=== PATIENT | male | born 1955 | race Caucasian/White ===

== ENCOUNTER → 2017-12-05 07:43 | Outpatient (CLI) | payer OTHER, SELFPAY ==
[2017-12-05 08:44] LABS: Add Manual Diff / Slide Review NO; Basophils Percent Auto 0.8 % (0-2); Eosinophils Percent Auto 6.1 % (2-4); Hematocrit 41.5 % (41-53); Hemoglobin 14.1 g/dL (13.5-17.5); Lymphocytes Percent Auto 26.4 % (25-40); Mean Corpuscular HGB Conc 33.9 % (30-36); Mean Corpuscular Hemoglobin 33.3 PG (26-34); Mean Corpuscular Volume 98.1 fL (80-100); Monocytes Percent Auto 5.8 % (3-14); Neutrophils Absolute Auto 3500 /uL (3000-5900); Neutrophils Percent Auto 60.9 % (50-75); Platelet Count 262 X10^3/uL (150-400); Red Blood Cell Count 4.23 X10^6/uL (4.5-5.9); Red Cell Distribution Width 13.5 % (11.6-14.8); White Blood Cell Count 5.8 X10^3/uL (4.5-11.0)
[2017-12-05 08:49] LABS: Alanine Aminotransferase 27 IU/L (21-72); Albumin 4.4 g/dL (3.5-5.0); Albumin Globulin Ratio 1.8 (1.0-2.8); Alkaline Phosphatase 45 U/L (38-126); Aspartate Aminotransferase 18 IU/L (17-59); BUN Creatinine Ratio 31.4 (6-22); Bilirubin Total 0.8 mg/dL (0.2-1.3); Blood Urea Nitrogen 22 mg/dL (9-20); Calcium 9.6 mg/dL (8.4-10.2); Carbon Dioxide 31 mmol/L (22-32); Chloride 100 mmol/L (98-107); Cholesterol 197 mg/dL (140-199); Estimated Glomerular Filt Rate > 60.0 mL/min (>60); Globulin 2.4 g/dL (1.7-4.1); Glucose 249 mg/dL (80-110); HDL Cholesterol 72 mg/dL (40-60); HEMOLYSIS < 15 (0-50); LDL Cholesterol Calculated 111 mg/dL (<100); Potassium 4.8 mmol/L (3.4-5.1); Sodium 140 mmol/L (137-145); Total Protein 6.8 g/dL (6.3-8.2); Triglycerides 68 mg/dL (35-150)
[2017-12-05 09:20] LABS: Prostate Specific Antigen Scrn 3.32 ng/mL (0.1-4.0); TSH w/ Reflex to FT4 2.41 uIU/mL (0.47-4.68)
[2017-12-05 09:36] LABS: Creatinine Urine Random 98.3 mg/dL
[2017-12-05 09:41] LABS: Microalbumi Creatinin Ratio Ur 12.2 ug/mg CR (<30); Microalbumin Urine Random 1.2 mg/dL (0-1.6)
== END ==
PROVIDERS: PCP Family Medicine; Visit Provider Family Medicine
DX: E10.9 Type 1 diabetes mellitus without complications (principal); N40.0 Benign prostatic hyperplasia without lower urinary tract symptoms; E78.00 Pure hypercholesterolemia, unspecified
CPT/HCPCS: 36415; 80053; 80061; 82043; 82570; 84443; 85025; G0103

== ENCOUNTER → 2018-12-12 07:22 | Outpatient (CLI) | payer OTHER, SELFPAY ==
[2018-12-12 08:11] LABS: Add Manual Diff / Slide Review NO; Basophils Absolute Auto 0 /uL (0-100); Basophils Percent Auto 0.9 % (0-2); Eosinophils Absolute Auto 300 /uL (0-450); Eosinophils Percent Auto 6.6 % (2-4); Hematocrit 41.5 % (41-53); Hemoglobin 14.1 g/dL (13.5-17.5); Lymphocytes Absolute Auto 1600 /uL (1100-4500); Lymphocytes Percent Auto 31.3 % (25-40); Mean Corpuscular Hemoglobin 33.3 PG (26-34); Monocytes Absolute Auto 400 /uL (0-900); Neutrophils Absolute Auto 2800 /uL (1500-7000); Neutrophils Percent Auto 54.2 % (50-75); Platelet Count 291 X10^3/uL (150-400); Red Blood Cell Count 4.23 X10^6/uL (4.5-5.9); Red Cell Distribution Width 13.8 % (11.6-14.8); White Blood Cell Count 5.3 X10^3/uL (4.5-11.0)
[2018-12-12 08:28] LABS: Alanine Aminotransferase 29 IU/L (21-72); Albumin 4.3 g/dL (3.5-5.0); Albumin Globulin Ratio 1.7 (1.0-2.8); Alkaline Phosphatase 46 U/L (38-126); Aspartate Aminotransferase 20 IU/L (17-59); BUN Creatinine Ratio 34.3 (6-22); Bilirubin Total 0.8 mg/dL (0.2-1.3); Blood Urea Nitrogen 24 mg/dL (9-20); Calcium 9.6 mg/dL (8.4-10.2); Carbon Dioxide 29 mmol/L (22-32); Chloride 100 mmol/L (98-107); Cholesterol 206 mg/dL (140-199); Estimated Glomerular Filt Rate > 60.0 mL/min (>60); Globulin 2.5 g/dL (1.7-4.1); Glucose 154 mg/dL (80-110); HDL Cholesterol 70 mg/dL (40-60); HEMOLYSIS < 15 (0-50); LDL Cholesterol Calculated 117 mg/dL (<100); Potassium 4.2 mmol/L (3.4-5.1); Sodium 138 mmol/L (137-145); Total Protein 6.8 g/dL (6.3-8.2); Triglycerides 96 mg/dL (35-150)
[2018-12-12 08:36] LABS: Hemoglobin A1C% w Est Avg Glu 7.9 % (4.0-6.0)
[2018-12-12 08:39] LABS: Creatinine Urine Random 104.9 mg/dL
[2018-12-12 08:43] LABS: Microalbumi Creatinin Ratio Ur 12.3 ug/mg CR (<30); Microalbumin Urine Random 1.3 mg/dL (0-1.6)
[2018-12-12 08:58] LABS: Prostate Specific Antigen Scrn 3.06 ng/mL (0.1-4.0)
[2018-12-12 08:59] LABS: TSH w/ Reflex to FT4 2.68 uIU/mL (0.47-4.68)
== END ==
PROVIDERS: PCP Family Medicine; Visit Provider Family Medicine
DX: E10.9 Type 1 diabetes mellitus without complications (principal); E78.00 Pure hypercholesterolemia, unspecified; Z12.5 Encounter for screening for malignant neoplasm of prostate
CPT/HCPCS: 36415; 80053; 80061; 82043; 82570; 83036; 84443; 85025; G0103

== ENCOUNTER → 2019-12-10 07:27 | Outpatient (CLI) | payer OTHER, SELFPAY ==
[2019-12-10 08:35] LABS: Add Manual Diff / Slide Review NO; Basophils Absolute Auto 0 /uL (0-100); Basophils Percent Auto 0.8 % (0-2); Eosinophils Absolute Auto 500 /uL (0-450); Eosinophils Percent Auto 8.4 % (2-4); Hematocrit 42.4 % (41-53); Hemoglobin 14.1 g/dL (13.5-17.5); Lymphocytes Absolute Auto 1700 /uL (1100-4500); Lymphocytes Percent Auto 31.7 % (25-40); Mean Corpuscular HGB Conc 33.2 % (30-36); Mean Corpuscular Hemoglobin 32.6 PG (26-34); Mean Corpuscular Volume 98.3 fL (80-100); Monocytes Absolute Auto 300 /uL (0-900); Monocytes Percent Auto 5.4 % (3-14); Neutrophils Absolute Auto 2900 /uL (1500-7000); Neutrophils Percent Auto 53.7 % (50-75); Platelet Count 253 X10^3/uL (150-400); Red Blood Cell Count 4.31 X10^6/uL (4.5-5.9); Red Cell Distribution Width 13.6 % (11.6-14.8); White Blood Cell Count 5.5 X10^3/uL (4.5-11.0)
[2019-12-10 08:52] LABS: HEMOLYSIS < 15 (0-50)
[2019-12-10 09:03] LABS: Alanine Aminotransferase 16 IU/L (<50); Albumin 4.2 g/dL (3.5-5.0); Albumin Globulin Ratio 1.8 (1.0-2.8); Alkaline Phosphatase 49 U/L (38-126); Aspartate Aminotransferase 18 IU/L (17-59); BUN Creatinine Ratio 31.3 (6-22); Bilirubin Total 0.7 mg/dL (0.2-1.3); Blood Urea Nitrogen 21 mg/dL (9-20); Calcium 9.6 mg/dL (8.4-10.2); Carbon Dioxide 29 mmol/L (22-32); Chloride 101 mmol/L (98-107); Cholesterol 205 mg/dL (140-199); Estimated Glomerular Filt Rate > 60.0 mL/min (>60); Globulin 2.4 g/dL (1.7-4.1); Glucose 254 mg/dL (80-110); HDL Cholesterol 74 mg/dL (40-60); LDL Cholesterol Calculated 114 mg/dL (<100); Potassium 4.8 mmol/L (3.4-5.1); Sodium 135 mmol/L (137-145); Total Protein 6.6 g/dL (6.3-8.2); Triglycerides 86 mg/dL (35-150)
[2019-12-10 09:33] LABS: TSH w/ Reflex to FT4 2.33 uIU/mL (0.47-4.68)
[2019-12-10 10:08] LABS: Creatinine Urine Random 91.9 mg/dL
[2019-12-10 10:15] LABS: Microalbumi Creatinin Ratio Ur 11.9 ug/mg CR (<30); Microalbumin Urine Random 1.1 mg/dL (0-1.6)
== END ==
PROVIDERS: PCP Family Medicine; Referring Provider Family Medicine; Visit Provider Family Medicine
DX: E10.9 Type 1 diabetes mellitus without complications (principal); E78.00 Pure hypercholesterolemia, unspecified; N40.0 Benign prostatic hyperplasia without lower urinary tract symptoms
CPT/HCPCS: 36415; 80053; 80061; 82043; 82570; 84153; 84443; 85025

== ENCOUNTER 2020-03-16 05:46 | Emergency (ER) | payer OTHER, SELFPAY ==
[2020-03-16] VITALS (28 sets, daily range): BP systolic 80–142; BP diastolic 51–74; PULSE 81–177; RESP 12–34; TEMP 37; O2SAT 97–100; BMI 25.0
--- NOTE | 2020-03-16 05:57 | DI.RAD.S_ITS ---
PROCEDURE: XR CHEST 1V INDICATIONS: chest pain TECHNIQUE: One view of the chest was acquired. COMPARISON: None. FINDINGS: Surgical changes and devices: None. Lungs and pleura: Lungs are clear. No pleural effusions or pneumothorax. Mediastinum: Mediastinal contours appear normal. Heart size is normal. Bones and chest wall: No suspicious bony lesions. Overlying soft tissues appear unremarkable. IMPRESSION: No acute cardiopulmonary disease process. Dictated by: Hien Hurd MD, PhD on 03/16/2020 at 7:45 Approved by: Hien Hurd MD, PhD on 03/16/2020 at 7:45
[2020-03-16 06:07] LABS: Add Manual Diff / Slide Review NO; Basophils Absolute Auto 100 /uL (0-100); Basophils Percent Auto 0.6 % (0-2); Eosinophils Absolute Auto 300 /uL (0-450); Eosinophils Percent Auto 2.8 % (2-4); Hemoglobin 15.9 g/dL (13.5-17.5); Lymphocytes Absolute Auto 3100 /uL (1100-4500); Lymphocytes Percent Auto 27.9 % (25-40); Mean Corpuscular Hemoglobin 32.8 PG (26-34); Mean Corpuscular Volume 99.4 fL (80-100); Monocytes Absolute Auto 700 /uL (0-900); Monocytes Percent Auto 5.8 % (3-14); Neutrophils Absolute Auto 7000 /uL (1500-7000); Neutrophils Percent Auto 62.9 % (50-75); Platelet Count 353 X10^3/uL (150-400); Red Blood Cell Count 4.83 X10^6/uL (4.5-5.9); Red Cell Distribution Width 13.8 % (11.6-14.8); White Blood Cell Count 11.2 X10^3/uL (4.5-11.0)
[2020-03-16 06:14] LABS: Alanine Aminotransferase 21 IU/L (<50); Albumin 4.5 g/dL (3.5-5.0); Albumin Globulin Ratio 1.5 (1.0-2.8); Alkaline Phosphatase 53 U/L (38-126); Aspartate Aminotransferase 26 IU/L (17-59); BUN Creatinine Ratio 31.6 (6-22); Bilirubin Total 0.9 mg/dL (0.2-1.3); Blood Urea Nitrogen 30 mg/dL (9-20); COVID19 -Nasal RAPID Negative (Negative); Calcium 9.7 mg/dL (8.4-10.2); Carbon Dioxide 27 mmol/L (22-32); Chloride 101 mmol/L (98-107); Creatine Kinase 102 U/L (55-170); Estimated Glomerular Filt Rate > 60.0 mL/min (>60); Glucose 313 mg/dL (80-110); Lipase 63 U/L (23-300); Sodium 135 mmol/L (137-145); Total Protein 7.5 g/dL (6.3-8.2)
[2020-03-16 06:16] LABS: INR 0.9 (0.9-1.3); Prothrombin Time 10.4 SECONDS (10.1-12.7)
[2020-03-16 06:18] LABS: HEMOLYSIS 66 (0-50); PTT Partial Thromboplastin Tim 33 SECONDS (26.4-36.2)
[2020-03-16 06:19] LABS: Potassium 4.1 mmol/L (3.4-5.1)
[2020-03-16] MEDS: SODIUM CHLORIDE 0.9% 1,000 ML 1000 ML IV (06:25)
[2020-03-16 06:26] LABS: Troponin I 0.046 ng/mL (0.01-0.034)
[2020-03-16 06:31] LABS: CKMB % Relative Index 1.3 % (1.5-5.0); Creatine Kinase MB 1.36 ng/mL (<2.37)
--- NOTE | 2020-03-16 06:36 | ED.SOB ---
HPI - SOB/Dyspnea General Chief Complaint: Arrhythmia/Palpitations Stated Complaint: SOB DIZZY X3 HOURS Time Seen by Provider: 03/16/20 05:59 Source: patient Mode of arrival: Ambulatory Limitations: no limitations History of Present Illness HPI Narrative: 64-year-old male nonsmoker with history of diabetes and a remote report of 1 prior episode of atrial fibrillation presents with a chief complaint of 3 hours of dizziness, shortness of breath and rapid heart rate. He states that he went to bed in his normal state of health and awoke at 1:00 a.m. feeling as stated. He denies any medication or diet change. He denies any recent travel. He denies any significant stresses, caffeine, nicotine or alcohol. He denies any chest pain. He denies any fever or chills. MD Complaint: shortness of breath Onset (ago): hour(s) Severity: moderate Consistency/Duration: constant Relieving factors: nothing Exacerbating factors: exertion Treatment prior to arrival: none Related Data Home oxygen amount: none Previous Rx's Medication Instructions Recorded insulin NPH isoph U-100 human 0 u SC TID #3 ml 12/12/16 [Humulin N NPH Insulin KwikPen] insulin glargine [Lantus Solostar 0 unit SQ HS #1 syr 12/12/16 U-100 Insulin] tamsulosin 0.4 mg capsule 0.8 mg PO QDAY #180 cap 11/24/19 apixaban [Eliquis] 5 mg PO BID 21 Days #42 tab 03/16/20 Allergies Allergy/AdvReac Type Severity Reaction Status Date / Time No Known Drug Allergies Allergy Verified 12/22/19 08:51 Review of Systems Constitutional Constitutional: Denies chills, Denies fatigue, Denies fever(s), Denies frequent falls, Denies lethargy and Denies weakness Eyes Eyes: Denies change in vision, Denies eye discharge, Denies irritation and Denies loss of vision ENT Ears, Nose, Mouth, and Throat: Denies change in voice, Denies dizziness, Denies neck pain, Denies sore throat and Denies throat swelling Cardiovascular Cardiovascular: Denies chest pain, Reports irregular heart rhythm, Reports lightheadedness, Reports palpitations, Denies dyspnea, Denies dyspnea on exertion and Denies orthopnea Respiratory Respiratory: Denies cough, Denies dyspnea, Denies dyspnea on exertion and Denies wheezing Gastrointestinal Gastrointestinal: Denies abdominal pain, Denies change in bowel habits, Denies diarrhea, Denies nausea and Denies vomiting Musculoskeletal Musculoskeletal: Denies neck pain and Denies numbness Integumentary/Breasts Skin/Breast: Denies pruritus, Denies erythema, Denies rash and Denies wounds Neurologic Neurologic: Denies behavioral changes, Denies confusion, Denies dizziness, Denies frequent falls, Denies loss of vision, Denies numbness and Denies weakness Psychiatric Psychiatric: Denies anxiety, Denies behavioral changes, Denies confusion, Denies depression, Denies homicidal ideation and Denies suicidal ideation Endocrine Endocrine: Denies fatigue, Denies flushing and Reports palpitations Hematologic/Lymphatic Hematologic/Lymphatic: Denies easy bruising Allergic/Immunologic Allergic/Immunologic: Denies urticaria, Denies throat swelling and Denies wheezing Patient History Medical History (Updated 03/16/20 @ 06:41 by Damián Dominique DO) Benign prostatic hyperplasia Diabetes mellitus type 1A (~2010) Kidney stones Social History marital status: Smoking Status: Never smoker alcohol intake: current (1-3 A WEEK ) substance use type: does not use Smoking Status: Never smoker Substance Use Type: does not use Exam Narrative Exam Narrative: GENERAL: [64] year old patient appears stated age. Well-nourished, well-developed patient, in mild distress. HEAD: Atraumatic. Normocephalic. EYES: Pupils equal round and reactive. Extraocular motions intact. No scleral icterus. No injection or drainage. ENT: Nose without bleeding, purulent drainage. Throat without erythema, tonsillar hypertrophy or exudate. Airway patent. NECK: Trachea midline. Non tender CARDIOVASCULAR: Rapid irregular rhythm without murmurs, gallops, or rubs. RESPIRATORY: Clear to auscultation. Breath sounds equal bilaterally. No wheezes, rales, or rhonchi. GASTROINTESTINAL: Abdomen soft, non-tender, nondistended. EXTREMITIES: No edema or joint tenderness. BACK: Nontender without deformity or crepitance. No flank tenderness. NEURO: AOx3. SKIN: No rash or erythema of visible areas Initial Vital Signs Initial Vital Signs: Vital Signs Temperature 98.6 F 03/16/20 05:57 Pulse Rate 164 H 03/16/20 05:57 Respiratory Rate 20 03/16/20 05:57 Blood Pressure 116/72 03/16/20 05:57 Pulse Oximetry 99 03/16/20 05:57 Procedures Cardioversion Consent Signed: Yes Indication: Rapid atrial fibrillation Stability: Stable Number of attempts (shocks): 1 Joules used: 150 Cardiac rhythm post-cardioversion: NSR Procedural Sedation Consent signed: Yes Time out performed: Yes Indication: cardioversion ASA Class: II Mallampati Airway Classification: Class II Preparation: monitor worker applied, pulse oximeter, capnometry used, supplemental O2 applied, suction/airway equipment at bedside and IV secured IV Propofol dose (mg): 80 Intraservice time/total sedation time (min): 10 ED Sedation Level: Moderate (Concious) Patient Tolerated Procedure: Well Complications: none Course Orders Ordered: Discontinued Medications Apixaban (Apixaban 5 Mg Tablet) 5 mg PO NOW ONE Stop: 03/16/20 06:58 Last Admin: 03/16/20 07:20 Dose: 5 mg Documented by: FLORENCIA Sodium Chloride (Normal Saline 0.9%) 1,000 mls @ 1,000 mls/hr IV BOLUS ONE Stop: 03/16/20 07:47 Last Infusion: 03/16/20 06:51 Dose: 0 mls/hr Documented by: Admin: 03/16/20 06:25 Dose: 1,000 mls/hr Documented by: AI Propofol (Propofol 200 Mg/20 Ml Vial) 100 mg IV NOW ONE Stop: 03/16/20 06:00 Last Admin: 03/16/20 06:46 Dose: 80 mg Documented by: AI Vital Signs Vital signs: Vital Signs - 8 hr 03/16/20 05:57 03/16/20 05:58 03/16/20 06:00 Temperature 98.6 F Pulse Rate 164 H 166 H 177 H Respiratory Rate 20 29 H 23 Blood Pressure 116/72 142/62 H Pulse Oximetry 99 100 100 MDM - SOB/Dyspnea Lab Data Result diagrams: 03/16/20 05:55 03/16/20 05:55 Labs: Lab Results 03/16/20 03/16/20 03/16/20 Range/Units 05:55 05:55 05:55 WBC 11.2 H (4.5-11.0) X10^3/uL RBC 4.83 (4.5-5.9) X10^6/uL Hgb 15.9 (13.5-17.5) g/dL Hct 48.0 (41-53) % MCV 99.4 (80-100) fL MCH 32.8 (26-34) PG MCHC 33.0 (30-36) % RDW 13.8 (11.6-14.8) % Plt Count 353 (150-400) X10^3/uL Neut % (Auto) 62.9 (50-75) % Lymph % (Auto) 27.9 (25-40) % [place] % (Auto) 5.8 (3-14) % Eos % (Auto) 2.8 (2-4) % Baso % (Auto) 0.6 (0-2) % Neut # (Auto) 7000 (7010-0857) /uL Lymph # (Auto) 3100 (9546-1345) /uL [place] # (Auto) 700 (0-900) /uL Eos # (Auto) 300 (0-450) /uL Baso # (Auto) 100 (0-100) /uL PT 10.4 (10.1-12.7) SECONDS INR 0.9 (0.9-1.3) APTT 33 (26.4-36.2) SECONDS Sodium (137-145) mmol/L Potassium (3.4-5.1) mmol/L Chloride (98-107) mmol/L Carbon Dioxide (22-32) mmol/L BUN (9-20) mg/dL Creatinine (0.66-1.25) mg/dL Estimated GFR (>60) mL/min BUN/Creatinine Ratio (6-22) Glucose (80-110) mg/dL Calcium (8.4-10.2) mg/dL Total Bilirubin (0.2-1.3) mg/dL AST (17-59) IU/L ALT (<50) IU/L Alkaline Phosphatase (38-126) U/L Total Creatine Kinase (55-170) U/L CK-MB (CK-2) (<2.37) ng/mL CK-MB (CK-2) Rel Index (1.5-5.0) % Troponin I (0.01-0.034) ng/mL Total Protein (6.3-8.2) g/dL Albumin (3.5-5.0) g/dL Globulin (1.7-4.1) g/dL Albumin/Globulin Ratio (1.0-2.8) Lipase (23-300) U/L COVID-19 PCR Negative (Negative) 03/16/20 Range/Units 05:55 WBC (4.5-11.0) X10^3/uL RBC (4.5-5.9) X10^6/uL Hgb (13.5-17.5) g/dL Hct (41-53) % MCV (80-100) fL MCH (26-34) PG MCHC (30-36) % RDW (11.6-14.8) % Plt Count (150-400) X10^3/uL Neut % (Auto) (50-75) % Lymph % (Auto) (25-40) % [place] % (Auto) (3-14) % Eos % (Auto) (2-4) % Baso % (Auto) (0-2) % Neut # (Auto) (9205-4192) /uL Lymph # (Auto) (6871-3111) /uL [place] # (Auto) (0-900) /uL Eos # (Auto) (0-450) /uL Baso # (Auto) (0-100) /uL PT (10.1-12.7) SECONDS INR (0.9-1.3) APTT (26.4-36.2) SECONDS Sodium 135 L (137-145) mmol/L Potassium 4.1 (3.4-5.1) mmol/L Chloride 101 (98-107) mmol/L Carbon Dioxide 27 (22-32) mmol/L BUN 30 H (9-20) mg/dL Creatinine 0.95 (0.66-1.25) mg/dL Estimated GFR > 60.0 (>60) mL/min BUN/Creatinine Ratio 31.6 H (6-22) Glucose 313 H (80-110) mg/dL Calcium 9.7 (8.4-10.2) mg/dL Total Bilirubin 0.9 (0.2-1.3) mg/dL AST 26 (17-59) IU/L ALT 21 (<50) IU/L Alkaline Phosphatase 53 (38-126) U/L Total Creatine Kinase 102 (55-170) U/L CK-MB (CK-2) 1.36 (<2.37) ng/mL CK-MB (CK-2) Rel Index 1.3 L (1.5-5.0) % Troponin I 0.046 H (0.01-0.034) ng/mL Total Protein 7.5 (6.3-8.2) g/dL Albumin 4.5 (3.5-5.0) g/dL Globulin 3.0 (1.7-4.1) g/dL Albumin/Globulin Ratio 1.5 (1.0-2.8) Lipase 63 (23-300) U/L COVID-19 PCR (Negative) ECG Data Attestation: I personally reviewed and interpreted this ECG as follows: Interpretation: Rapid atrial fibrillation, rate 167, mild septal ST depressions Discharge Plan Departure Patient Disposition: Home Clinical Impression: Atrial fibrillation Qualifiers: Atrial fibrillation type: paroxysmal Qualified Code(s): I48.0 - Paroxysmal atrial fibrillation Instructions: DI for Atrial Fibrillation Activity Restrictions/Additional Instructions: *You have been diagnosed with [rapid atrial fibrillation, resolved with procedural sedation and cardioversion] *What to do: *Take medications as directed: You will need to be on an anticoagulant for the next 3 weeks, a prescription has been sent to [facility] at your request *Follow up with your primary care provider in 2-3 days, call for an appointment. Let them know you were seen in the Emergency Department and that we ask that you be seen in follow up *Return to ER if you should have any new, worsening or concerning symptoms Prescriptions: New Eliquis 5 mg tablet 5 mg PO BID 21 Days Qty: 42 RF: 0 No Action insulin NPH isoph U-100 human [Humulin N NPH Insulin KwikPen] 100 UNIT/1 ML insulin pen 0 u SC TID Qty: 3 RF: 3 insulin glargine [Lantus Solostar U-100 Insulin] 100 UNIT/1 ML insulin pen 0 unit SQ HS Qty: 1 RF: 12 tamsulosin [Flomax] 0.4 mg capsule 0.8 mg PO QDAY Qty: 180 RF: 1 Referrals: Ralph Haas MD [Primary Care Provider] -
[2020-03-16] MEDS: propofoL 200 MG/20 ML VIAL 100 MG IV (06:46)
[2020-03-16] MEDS: APIXABAN 5 MG TABLET PO (07:20)
== END 2020-03-16 08:06 | disposition home or self-care (01) ==
PROVIDERS: Emergency Provider Emergency Medicine; PCP Family Medicine
DX: I48.0 Paroxysmal atrial fibrillation (principal); Z79.01 Long term (current) use of anticoagulants; E10.8 Type 1 diabetes mellitus with unspecified complications; R00.2 Palpitations; Z79.4 Long term (current) use of insulin; Z20.828 Contact with and (suspected) exposure to other viral communicable diseases
CPT/HCPCS: 36415; 71045; 80053; 82550; 82553; 83690; 84484; 85025; 85610; 85730; 87635; 92960; 93005; 99152; 99284; 99285; 99291; J2704

== ENCOUNTER → 2020-04-15 09:18 | Outpatient (CLI) | payer OTHER, SELFPAY ==
[2020-04-15 09:58] LABS: Hemoglobin A1C% w Est Avg Glu 8.2 % (4.0-6.0)
[2020-04-15 09:59] LABS: Alanine Aminotransferase 20 IU/L (<50); Albumin 4.4 g/dL (3.5-5.0); Albumin Globulin Ratio 1.8 (1.0-2.8); Alkaline Phosphatase 49 U/L (38-126); Aspartate Aminotransferase 19 IU/L (17-59); BUN Creatinine Ratio 31.3 (6-22); Bilirubin Total 0.5 mg/dL (0.2-1.3); Blood Urea Nitrogen 20 mg/dL (9-20); Calcium 9.6 mg/dL (8.4-10.2); Carbon Dioxide 33 mmol/L (22-32); Chloride 100 mmol/L (98-107); Cholesterol 215 mg/dL (140-199); Estimated Glomerular Filt Rate > 60.0 mL/min (>60); Globulin 2.4 g/dL (1.7-4.1); Glucose 225 mg/dL (80-110); HDL Cholesterol 70 mg/dL (40-60); HEMOLYSIS < 15 (0-50); LDL Cholesterol Calculated 130 mg/dL (<100); Potassium 4.2 mmol/L (3.4-5.1); Sodium 137 mmol/L (137-145); Total Protein 6.8 g/dL (6.3-8.2); Triglycerides 75 mg/dL (35-150)
[2020-04-15 10:11] LABS: Add Manual Diff / Slide Review NO; Basophils Absolute Auto 0 /uL (0-100); Basophils Percent Auto 0.6 % (0-2); Eosinophils Absolute Auto 200 /uL (0-450); Eosinophils Percent Auto 3.3 % (2-4); Hemoglobin 13.7 g/dL (13.5-17.5); Lymphocytes Absolute Auto 1500 /uL (1100-4500); Lymphocytes Percent Auto 29.6 % (25-40); Mean Corpuscular HGB Conc 33.4 % (30-36); Mean Corpuscular Hemoglobin 32.6 PG (26-34); Mean Corpuscular Volume 97.8 fL (80-100); Monocytes Absolute Auto 200 /uL (0-900); Monocytes Percent Auto 4.8 % (3-14); Neutrophils Absolute Auto 3100 /uL (1500-7000); Neutrophils Percent Auto 61.7 % (50-75); Platelet Count 278 X10^3/uL (150-400); Red Blood Cell Count 4.19 X10^6/uL (4.5-5.9); Red Cell Distribution Width 13.5 % (11.6-14.8); White Blood Cell Count 5.1 X10^3/uL (4.5-11.0)
[2020-04-15 10:48] LABS: TSH w/ Reflex to FT4 2.07 uIU/mL (0.47-4.68)
[2020-04-15 11:09] LABS: Creatinine Urine Random 77.5 mg/dL
[2020-04-15 11:14] LABS: Microalbumi Creatinin Ratio Ur 32.2 ug/mg CR (<30); Microalbumin Urine Random 2.5 mg/dL (0-1.6)
== END ==
PROVIDERS: PCP Family Medicine; Referring Provider Family Medicine; Visit Provider Family Medicine
DX: I48.0 Paroxysmal atrial fibrillation (principal); E10.9 Type 1 diabetes mellitus without complications
CPT/HCPCS: 36415; 80053; 80061; 82043; 82570; 83036; 84443; 85025

== ENCOUNTER → 2020-04-26 07:57 | Outpatient (CLI) | payer OTHER, SELFPAY ==
--- NOTE | 2020-04-26 07:58 | DI.ECHO.S_ITS ---
[facility] +---------+ [facility] +---------+ : : [address] : : : : [id number] : : : : Phone: [phone] Echocardiogram Report + + :Name: DUSTIN MAJANO Study Date: 04/26/2020 Height: 66 in : :[facility] ReadingLocation: Weight: 155 lb : : Gender: Male BSA: 1.8 m2 : :: 1955 Age: 65 yrs BP: 153/87 mmHg: :Reason For Study: ATRIAL FIBRILLATION : :Ordering Physician: TG, : :ELIANE Performed By: Lissette Guillory : :Referring: ELIANE MAS : + + Interpretation Summary The left ventricle is normal in size and wall thickness. The ejection fraction is estimated to be 55-60%. The right ventricle is normal in size and function. There is mild mitral regurgitation. There is mild aortic regurgitation. There is mild tricuspid regurgitation. The right ventricular systolic pressure is estimated to be at least 26 mmHg based on an estimated right atrial pressure of 3 mm Hg. The ascending aorta is mildly enlarged. Procedure: A two-dimensional transthoracic echocardiogram with color flow and Doppler was performed. The study quality was technically adequate. There is no prior echocardiogram noted for this patient. The patient was in sinus rhythm with heart rates between 62-86 bpm during the exam. Left Ventricle: The left ventricle is normal in size and wall thickness. There is no thrombus. A false chord is noted (normal variant). The ejection fraction is estimated to be 55-60%. There are no focal wall motion abnormalities. Diastolic parameters suggest a relaxation abnormality of the left ventricle, consistent with probable normal filling pressures. Right Ventricle: The right ventricle is normal in size and function. Atria: The left atrial size is normal. Right atrial size is normal. There is no Doppler evidence for an interatrial shunt. Mitral Valve: The mitral valve is normal in structure and function. There is mild mitral regurgitation. Aortic Valve: The aortic valve opens well. The aortic valve is trileaflet. There is mild aortic valve sclerosis. There is no aortic valve stenosis. There is mild aortic regurgitation. Tricuspid Valve: The tricuspid valve is normal. There is mild tricuspid regurgitation. The right ventricular systolic pressure is estimated to be at least 26 mmHg based on an estimated right atrial pressure of 3 mm Hg. Pulmonic Valve: The pulmonic valve leaflets are thin and pliable; valve motion is normal. There is no pulmonic valvular regurgitation. Great Vessels: The aortic root is normal size. The ascending aorta is mildly enlarged. The IVC is of normal diameter and collapses greater than 50% with a sniff. This suggests a low right atrial pressure of 3 mm Hg. Pericardium/ Pleura There is no pericardial effusion. There is no pleural effusion. MMode/2D Measurements & Calculations LVIDd: 5.1 cm LVOT diam: 2.1 cm LVIDs: 3.2 cm Ao root diam: 3.8 cm FS: 36.6 % asc Aorta Diam: 3.7 cm EPSS: 0.56 cm Ao Arch Diam (Prox Trans): 3.0 cm IVSd: 0.94 cm LVPWd: 0.74 cm LV hernandez. diameter/BSA (cm/m^2): 2.9 LV sys. diameter/BSA (cm/m^2): 1.8 LA A2 area: 18.9 cm2 RA long axis: 4.4 cm LA A4 area: 14.3 cm2 RA area: 14.4 cm2 LA length (vol): 4.9 cm RA vol: 40.4 ml LA vol: 47.3 ml RA : 22.5 ml/m2 LA vol index: 26.4 ml/m2 IVC diam: 1.4 cm RVD1 (basal): 3.3 cm TAPSE: 2.2 cm Doppler Measurements & Calculations Ao V2 max: 142.9 cm/sec LVOT Max Bertin: 131.3 cm/sec Ao V2 mean: 96.7 cm/sec LV V1 max P.9 mmHg Ao max P.2 mmHg LV V1 VTI: 26.2 cm Ao mean P.2 mmHg MAXINE(I,D): 3.4 cm2 Ao V2 VTI: 27.6 cm MAXINE(V,D): 3.2 cm2 sev ratio: 0.95 MAXINE indexed to BSA (cm^2/m^2): 1.9 MV E max bertin: 61.5 cm/sec TR max bertin: 238.1 cm/sec MV A max bertin: 83.1 cm/sec TR max P.7 mmHg MV E/A: 0.74 PA V2 max: 87.6 cm/sec Med Peak E' Bertin: 9.8 cm/sec PA V2 mean: 63.1 cm/sec E/E' med: 6.3 PA mean P.8 mmHg Lat Peak E' Bertin: 12.1 cm/sec PA pr(Accel): 31.0 mmHg E/E' lat: 5.1 E/e' average: 5.7 MV dec time: 0.24 sec SV(OT): 92.5 ml Reading Physician:04:14 PM
== END ==
PROVIDERS: PCP Family Medicine; Referring Provider Family Medicine; Visit Provider Family Medicine
DX: I08.3 Combined rheumatic disorders of mitral, aortic and tricuspid valves (principal); I48.0 Paroxysmal atrial fibrillation; I77.89 Other specified disorders of arteries and arterioles
CPT/HCPCS: 93306

== ENCOUNTER → 2020-05-25 08:41 | Outpatient (CLI) | payer OTHER, SELFPAY ==
[2020-05-25 09:08] LABS: COVID19 -Nasal RAPID POSITIVE (Negative)
== END ==
PROVIDERS: PCP Family Medicine; Visit Provider Nurse Practitioner Family
DX: U07.1 COVID-19 (principal)
CPT/HCPCS: 87635

== ENCOUNTER → 2020-07-02 15:21 | Outpatient (CLI) | payer OTHER, SELFPAY ==
[2020-07-02] MEDS: COVID-19 VACC, Ad26(JANSSEN)/PF 0.5 ML IM (15:26)
== END ==
PROVIDERS: PCP Family Medicine; Visit Provider Internal Medicine
DX: Z23 Encounter for immunization (principal)
CPT/HCPCS: 0031A; 91303

== ENCOUNTER → 2020-09-28 12:19 | Outpatient (CLI) | payer OTHER, SELFPAY ==
[2020-09-28 13:10] LABS: Add Manual Diff / Slide Review NO; Basophils Absolute Auto 0 /uL (0-100); Basophils Percent Auto 0.5 % (0-2); Eosinophils Absolute Auto 100 /uL (0-450); Hematocrit 39.8 % (41-53); Hemoglobin 13.2 g/dL (13.5-17.5); Lymphocytes Absolute Auto 1700 /uL (1100-4500); Mean Corpuscular HGB Conc 33.1 % (30-36); Mean Corpuscular Hemoglobin 32.9 PG (26-34); Mean Corpuscular Volume 99.3 fL (80-100); Monocytes Absolute Auto 400 /uL (0-900); Neutrophils Absolute Auto 3800 /uL (1500-7000); Neutrophils Percent Auto 63.5 % (50-75); Platelet Count 278 X10^3/uL (150-400); Red Blood Cell Count 4.01 X10^6/uL (4.5-5.9); Red Cell Distribution Width 13.9 % (11.6-14.8); White Blood Cell Count 6.1 X10^3/uL (4.5-11.0)
[2020-09-28 13:22] LABS: Hemoglobin A1C% w Est Avg Glu 7.8 % (4.0-6.0)
[2020-09-28 13:25] LABS: Alanine Aminotransferase 22 IU/L (<50); Albumin 4.2 g/dL (3.5-5.0); Albumin Globulin Ratio 1.6 (1.0-2.8); Alkaline Phosphatase 46 U/L (38-126); Aspartate Aminotransferase 26 IU/L (17-59); BUN Creatinine Ratio 33.3 (6-22); Bilirubin Total 0.4 mg/dL (0.2-1.3); Blood Urea Nitrogen 23 mg/dL (9-20); Calcium 9.6 mg/dL (8.4-10.2); Carbon Dioxide 29 mmol/L (22-32); Chloride 103 mmol/L (98-107); Estimated Glomerular Filt Rate > 60.0 mL/min (>60); Globulin 2.6 g/dL (1.7-4.1); Glucose 150 mg/dL (80-110); HEMOLYSIS < 15 (0-50); Potassium 4.4 mmol/L (3.4-5.1); Sodium 137 mmol/L (137-145); Total Protein 6.8 g/dL (6.3-8.2)
== END ==
PROVIDERS: PCP Family Medicine; Referring Provider Family Medicine; Visit Provider Family Medicine
DX: E10.9 Type 1 diabetes mellitus without complications (principal)
CPT/HCPCS: 36415; 80053; 83036; 85025

== ENCOUNTER → 2021-01-04 17:40 | Outpatient (CLI) | payer OTHER, SELFPAY | PROVIDERS: PCP Family Medicine; Referring Provider Nurse Practitioner Family; Visit Provider Nurse Practitioner Family | DX: R31.9 Hematuria, unspecified (principal) | CPT/HCPCS: 87086 ==

== ENCOUNTER 2021-01-06 14:06 | Emergency (ER) | payer OTHER, SELFPAY ==
[2021-01-06] VITALS (10 sets, daily range): BP systolic 148–187; BP diastolic 66–88; PULSE 63–74; RESP 20; TEMP 36.7; O2SAT 95–100; BMI 24.2
--- NOTE | 2021-01-06 14:37 | ED.GENADULT ---
HPI - General Adult General Chief complaint: Urogenital-Male Stated complaint: Can't Urinate, Thinks Possible Kidney Stone Time Seen by Provider: 01/06/21 14:19 Source: patient Mode of arrival: Ambulatory Limitations: no limitations History of Present Illness HPI narrative: 65-year-old gentleman with well-controlled type 1 diabetes, BPH on 0.8 mg of tamsulosin and history of kidney stones presents with left flank pain and acute urinary retention. He describes no fevers, cough, chills. Abdominal pain related to his urinary retention but no constipation or diarrhea. Blood sugars have been doing well. No cough, chest pain or palpitations. Related Data Previous Rx's Medication Instructions Recorded insulin glargine 100 unit/mL (3 16 unit SUBCUT HS #15 ml 05/31/20 mL) subcutaneous pen (Lantus Solostar U-100 Insulin) insulin lispro 100 unit/mL 7 unit SUBCUT TID #30 ml 06/09/20 subcutaneous pen (Humalog KwikPen (U-100) Insulin) BD Anay Ultra Fine Pen [place] 4mm #200 ea 10/07/20 32G tamsulosin 0.4 mg capsule (Flomax) 0.8 mg PO QDAY #180 cap 11/30/20 Allergies Allergy/AdvReac Type Severity Reaction Status Date / Time No Known Drug Allergies Allergy Verified 09/30/20 16:31 Review of Systems Review of Systems Narrative: Remainder of complete review of systems is otherwise unremarkable except for that included in the HPI. Patient History Medical History Benign prostatic hyperplasia COVID-19 Diabetes mellitus type 1A (~2010) Kidney stones Viral illness Social History marital status: Smoking Status: Never smoker alcohol intake: current (1-3 A WEEK ) substance use type: does not use Smoking Status: Never smoker alcohol intake frequency: a few times a week Alcohol type: beer Substance Use Type: does not use Exam Narrative Exam Narrative: General: Healthy appearing, in no acute distress. Able to give a complete and coherent history. Well-nourished well-developed HEENT: Moist mucous membranes, normal sclera with reactive pupils, Respiratory: Lungs are clear to auscultation, no wheezing no rales no rhonchi. Full and symmetrical air movement Cardiac: Regular rate and rhythm no murmurs no bruits Abdomen: Soft, nontender, good bowel tones, left flank pain Skin: Warm and dry, no rashes Neurologic: Grossly neurologically intact with no obvious asymmetries or abnormalities Extremities: No trauma, well perfused Psych: Cooperative, appropriate insight and affect Stringer catheters placed and 1 L of urine returns Initial Vital Signs Initial Vital Signs: Vital Signs Pulse Rate 73 01/06/21 14:10 Pulse Oximetry 99 01/06/21 14:10 Course Orders Ordered: ED Orders 01/06/21 14:40 Urinalysis and Microscopic Stat 01/06/21 15:00 CT kidney ureter bladder (KUB) Stat 01/06/21 15:09 Complete Blood Count AUTO DIFF Stat Comprehensive Metabolic Panel Stat Discontinued Medications Sodium Chloride (Normal Saline 0.9%) 1,000 mls @ 1,000 mls/hr IV BOLUS ONE Stop: 01/06/21 15:58 Last Infusion: 01/06/21 16:50 Dose: 0 mls/hr Documented by: MARY JO Admin: 01/06/21 15:43 Dose: 1,000 mls/hr Documented by: MARY JO Vital Signs Vital signs: Vital Signs - 8 hr 01/06/21 14:10 01/06/21 14:11 01/06/21 14:13 Temperature 98.1 F Pulse Rate 73 70 68 Respiratory Rate 20 Blood Pressure 187/88 H 187/88 H Pulse Oximetry 99 99 99 01/06/21 14:30 01/06/21 15:00 01/06/21 15:30 Temperature Pulse Rate 74 67 67 Respiratory Rate Blood Pressure 149/66 H 163/71 H Pulse Oximetry 100 97 95 01/06/21 16:00 Temperature Pulse Rate 63 Respiratory Rate Blood Pressure Pulse Oximetry 95 Medical Decision Making Lab Data Result diagrams: 01/06/21 15:09 01/06/21 15:09 Labs: Lab Results 01/06/21 01/06/21 01/06/21 Range/Units 14:40 14:50 15:09 WBC 6.9 (4.5-11.0) X10^3/uL RBC 4.10 L (4.5-5.9) X10^6/uL Hgb 13.5 (13.5-17.5) g/dL Hct 41.1 (41-53) % MCV 100.1 H (80-100) fL MCH 33.0 (26-34) PG MCHC 33.0 (30-36) % RDW 13.5 (11.6-14.8) % Plt Count 291 (150-400) X10^3/uL Neut % (Auto) 69.8 (50-75) % Lymph % (Auto) 18.8 L (25-40) % [place] % (Auto) 7.4 (3-14) % Eos % (Auto) 3.5 (2-4) % Baso % (Auto) 0.5 (0-2) % Neut # (Auto) 4800 (6757-3491) /uL Lymph # (Auto) 1300 (8610-5102) /uL [place] # (Auto) 500 (0-900) /uL Eos # (Auto) 200 (0-450) /uL Baso # (Auto) 0 (0-100) /uL Sodium (137-145) mmol/L Potassium (3.4-5.1) mmol/L Chloride (98-107) mmol/L Carbon Dioxide (22-32) mmol/L BUN (9-20) mg/dL Creatinine (0.66-1.25) mg/dL Estimated GFR (>60) mL/min BUN/Creatinine Ratio (6-22) Glucose (80-110) mg/dL Calcium (8.4-10.2) mg/dL Total Bilirubin (0.2-1.3) mg/dL AST (17-59) IU/L ALT (<50) IU/L Alkaline Phosphatase (38-126) U/L Total Protein (6.3-8.2) g/dL Albumin (3.5-5.0) g/dL Globulin (1.7-4.1) g/dL Albumin/Globulin Ratio (1.0-2.8) Urine Color Yellow Urine Appearance Cloudy Urine pH 6.5 (4.5-8.0) Ur Specific [place] 1.015 (1.000-1.035) Urine Protein 1+ H (Negative) Urine Glucose (UA) Negative (Negative) g/dL Urine Ketones Trace H (NEGATIVE) Urine Occult Blood 3+ H (Negative) Urine Nitrate Negative (Negative) Urine Bilirubin Negative (NEGATIVE) Urine Urobilinogen 0.2 (0.2) E.U./dL Ur Leukocyte Esterase Negative (NEGATIVE) Urine RBC >100/hpf H Cancelled (0-5/HPF) Urine WBC 1-5/hpf Cancelled (0-5/HPF) Ur Squamous Epith Cells 0-1 /hpf Cancelled (0-5/HPF) Ur Transition Epith Cell Cancelled Ur Renal Epithelial Cell Cancelled Calcium Oxalate Crystal Cancelled Uric Acid Crystals Cancelled Triple Phos Crystals Cancelled Other Crystals Cancelled Amorphous Sediment Cancelled Urine Bacteria None seen Cancelled (None) Hyaline Casts Cancelled Granular Casts Cancelled RBC Casts Cancelled WBC Casts Cancelled Other Casts Cancelled Urine Mucus Cancelled Urine Trichomonas Cancelled Urine Yeast Cancelled Urine Sperm Cancelled Ur Culture Indicated? Cult not indicated Cancelled Micro UA Comment Cancelled 01/06/21 Range/Units 15:09 WBC (4.5-11.0) X10^3/uL RBC (4.5-5.9) X10^6/uL Hgb (13.5-17.5) g/dL Hct (41-53) % MCV (80-100) fL MCH (26-34) PG MCHC (30-36) % RDW (11.6-14.8) % Plt Count (150-400) X10^3/uL Neut % (Auto) (50-75) % Lymph % (Auto) (25-40) % [place] % (Auto) (3-14) % Eos % (Auto) (2-4) % Baso % (Auto) (0-2) % Neut # (Auto) (5534-8851) /uL Lymph # (Auto) (9341-3383) /uL [place] # (Auto) (0-900) /uL Eos # (Auto) (0-450) /uL Baso # (Auto) (0-100) /uL Sodium 137 (137-145) mmol/L Potassium 4.0 (3.4-5.1) mmol/L Chloride 100 (98-107) mmol/L Carbon Dioxide 30 (22-32) mmol/L BUN 22 H (9-20) mg/dL Creatinine 0.64 L (0.66-1.25) mg/dL Estimated GFR > 60.0 (>60) mL/min BUN/Creatinine Ratio 34.4 H (6-22) Glucose 157 H (80-110) mg/dL Calcium 9.9 (8.4-10.2) mg/dL Total Bilirubin 0.3 (0.2-1.3) mg/dL AST 21 (17-59) IU/L ALT 17 (<50) IU/L Alkaline Phosphatase 67 (38-126) U/L Total Protein 7.1 (6.3-8.2) g/dL Albumin 4.4 (3.5-5.0) g/dL Globulin 2.7 (1.7-4.1) g/dL Albumin/Globulin Ratio 1.6 (1.0-2.8) Urine Color Urine Appearance Urine pH (4.5-8.0) Ur Specific [place] (1.000-1.035) Urine Protein (Negative) Urine Glucose (UA) (Negative) g/dL Urine Ketones (NEGATIVE) Urine Occult Blood (Negative) Urine Nitrate (Negative) Urine Bilirubin (NEGATIVE) Urine Urobilinogen (0.2) E.U./dL Ur Leukocyte Esterase (NEGATIVE) Urine RBC (0-5/HPF) Urine WBC (0-5/HPF) Ur Squamous Epith Cells (0-5/HPF) Ur Transition Epith Cell Ur Renal Epithelial Cell Calcium Oxalate Crystal Uric Acid Crystals Triple Phos Crystals Other Crystals Amorphous Sediment Urine Bacteria (None) Hyaline Casts Granular Casts RBC Casts WBC Casts Other Casts Urine Mucus Urine Trichomonas Urine Yeast Urine Sperm Ur Culture Indicated? Micro UA Comment MDM Narrative Medical decision making narrative: 65-year-old type 1 diabetic with left kidney stone at the left UVJ. Pain is controlled this point. Acute urinary retention likely related to the pain and swelling secondary to the kidney stone. Stringer catheters placed with a L of fluid returned. Slightly bloody and as the bladder is drained there does appear to be some spasm in increased blood and after a L of fluid is out the urine again begins to clear nicely. On CT scan incidental bladder wall thickness is appreciated that will need further workup. These findings are reviewed with him. Last night follow-up with Dr. Haas on Sunday for removal of the catheter. He is given a leg bag with instructions. Will need follow-up with Dr. Fisher regarding the kidney stone if it does not come out, the BPH which is becoming more symptomatic and for follow-up of the incidental bladder wall thickness as well. Discharge Plan Departure Patient Disposition: Home Clinical Impression: Ureterolithiasis, Acute urinary retention, Bladder wall thickening Instructions: DI for Kidney Stones, DI for Urinary Retention in Men Activity Restrictions/Additional Instructions: Thank you for coming in today You do have a kidney stone on the left side that looks like it is almost ready to drop into your bladder. Please continue the tamsulosin twice a day. This should pass relatively easily. Regarding your acute urinary retention. I suspect that with the size of your prostate than the pain and swelling related to the kidney stone there was enough issue that you were simply no longer able to void. With the catheter placement, there was a L of fluid that came out. When there has been that much distension to the bladder it takes a couple of days to shrink back down to normal size and be functional again. We have left the Stringer catheter in place. Please call Dr. Juarez office and see if he can healthy removed the catheter on Sunday and see how you are able to void. You need to follow-up with Dr. Fisher our urologist. If you do need help getting that stone out he will be the person for you. On your CT scan there was a mention of diffuse bladder wall thickening. That may be simply because of the years of a enlarging prostate but you will need an answer regarding this. If your prostate does need to have any type of surgical intervention, again, Dr. Fisher is the appropriate physician. If you have catheter problems, develop fevers have new or changing symptoms, please feel free to return to the ER Prescriptions: No Action Lantus Solostar U-100 Insulin 100 unit/mL (3 mL) insulin pen 16 unit SUBCUT HS Qty: 15 RF: 4 insulin lispro [Humalog KwikPen Insulin] 100 unit/mL insulin pen 7 unit SUBCUT TID Qty: 30 RF: 3 (DME) BD Anay Ultra Fine Pen [place] 4mm 32G See Rx Instructions .Route .MEDSUPPLY Qty: 200 RF: 3 tamsulosin [Flomax] 0.4 mg capsule 0.8 mg PO QDAY Qty: 180 RF: 1 Referrals: Ralph Haas MD [Primary Care Provider] - Ronnie Fisher MD [Physician] -
--- NOTE | 2021-01-06 15:00 | DI.CT.S_ITS ---
PROCEDURE: CT KIDNEY URETER BLADDER (KUB) INDICATIONS: 65-year-old male with left flank pain, hematuria, history of renal calculi TECHNIQUE: Axial sections were acquired from the lung bases to the pubic symphysis. Coronal and sagittal reformats were performed. For radiation dose reduction, the following was used: automated exposure control, adjustment of mA and/or kV according to patient size. COMPARISON: None. FINDINGS: Lower thorax: The lung bases are clear. Heart size normal. No hiatal hernia. Liver: Normal in size and attenuation. No contour deformity present. Biliary system: No calcified cholelithiasis or pericholecystic inflammation. No intra or extrahepatic bile duct dilatation. Pancreas: Unremarkable without mass or inflammation evident. Spleen: Normal in size and density. Adrenals: Normal morphology and density. Reproductive system: Unremarkable as visualized. Urinary system: Moderate left hydronephrosis and hydroureter related to 7 x 4 mm calculus at the left ureterovesical junction. Bilateral nonobstructing renal calculi present measuring up to 5 mm on the right. No right hydronephrosis. Stringer catheter in the urinary bladder. Additionally, there is generalized wall thickening in the bladder measuring up to 1.5 cm Gastrointestinal system: The bowel is unremarkable without evidence of bowel obstruction or inflammation. The stomach appears unremarkable. Appendix: Normal appendix identified. No evidence of appendicitis. Peritoneal spaces: No mesenteric or retroperitoneal adenopathy. No free air. No free fluid. Vasculature: Aortic atherosclerotic vascular calcification noted without evidence of aneurysm. Musculoskeletal: Normal bone mineralization. No acute fractures. Left inguinal hernia contains fat without bowel involvement. IMPRESSION: 1. Moderate left hydronephrosis and hydroureter are associated with 7 x 4 mm calculus at the left ureterovesical junction. 2. Additional bilateral nonobstructing renal calculi. 3. Diffuse bladder wall thickening. Differential would include superimposed cystitis and neoplasm. Consider follow-up ultrasound bladder. Approved by: Hasmukh Chandra M.D. on 01/06/2021 at 14:41
[2021-01-06 15:04] LABS: Bilirubin Urine UA NEGATIVE (NEGATIVE); Color Urine UA YELLOW; Glucose Urine UA NEGATIVE (Negative); Ketones Urine UA TRACE (NEGATIVE); Leukocyte Esterase Urine UA NEGATIVE (NEGATIVE); Nitrite Urine UA NEGATIVE (Negative); Occult Blood Urine UA 3+ (Negative); Protein Urine UA 1+ (Negative); Specific Gravity Urine UA 1.015 (1.000-1.035); Urobilinogen Urine UA 0.2 E.U./dL (0.2); pH Urine UA 6.5 (4.5-8.0)
[2021-01-06 15:14] LABS: Appearance Urine UA CLOUDY
[2021-01-06 15:15] LABS: Bacteria Urine None Seen; Culture Indicated Urine Cult Not Indicated; RBC Urine >100/HPF (0-5/HPF); Squamous Epithelial Cell Urine 0-1 /HPF (0-5/HPF); WBC Urine 1-5/HPF (0-5/HPF)
[2021-01-06 15:18] LABS: Add Manual Diff / Slide Review NO; Basophils Absolute Auto 0 /uL (0-100); Basophils Percent Auto 0.5 % (0-2); Eosinophils Absolute Auto 200 /uL (0-450); Eosinophils Percent Auto 3.5 % (2-4); Hematocrit 41.1 % (41-53); Hemoglobin 13.5 g/dL (13.5-17.5); Lymphocytes Absolute Auto 1300 /uL (1100-4500); Lymphocytes Percent Auto 18.8 % (25-40); Mean Corpuscular Volume 100.1 fL (80-100); Monocytes Absolute Auto 500 /uL (0-900); Monocytes Percent Auto 7.4 % (3-14); Neutrophils Absolute Auto 4800 /uL (1500-7000); Neutrophils Percent Auto 69.8 % (50-75); Platelet Count 291 X10^3/uL (150-400); Red Cell Distribution Width 13.5 % (11.6-14.8); White Blood Cell Count 6.9 X10^3/uL (4.5-11.0)
[2021-01-06 15:33] LABS: Alanine Aminotransferase 17 IU/L (<50); Albumin 4.4 g/dL (3.5-5.0); Albumin Globulin Ratio 1.6 (1.0-2.8); Alkaline Phosphatase 67 U/L (38-126); Aspartate Aminotransferase 21 IU/L (17-59); BUN Creatinine Ratio 34.4 (6-22); Bilirubin Total 0.3 mg/dL (0.2-1.3); Blood Urea Nitrogen 22 mg/dL (9-20); Calcium 9.9 mg/dL (8.4-10.2); Carbon Dioxide 30 mmol/L (22-32); Chloride 100 mmol/L (98-107); Estimated Glomerular Filt Rate > 60.0 mL/min (>60); Globulin 2.7 g/dL (1.7-4.1); Glucose 157 mg/dL (80-110); HEMOLYSIS < 15 (0-50); Sodium 137 mmol/L (137-145); Total Protein 7.1 g/dL (6.3-8.2)
[2021-01-06] MEDS: SODIUM CHLORIDE 0.9% 1,000 ML 1000 ML IV (15:43)
== END 2021-01-06 17:45 | disposition home or self-care (01) ==
PROVIDERS: Emergency Provider Emergency Medicine; PCP Family Medicine
DX: N20.1 Calculus of ureter (principal); R33.8 Other retention of urine; N32.89 Other specified disorders of bladder
CPT/HCPCS: 36415; 74176; 80053; 81001; 85025; 96360; 99284

== ENCOUNTER → 2021-01-12 13:44 | Outpatient (CLI) | payer OTHER, SELFPAY ==
--- NOTE | 2021-01-12 13:47 | DI.RAD.S_ITS ---
PROCEDURE: XR KUB INDICATIONS: calculus of ureter TECHNIQUE: One view of the abdomen acquired. COMPARISON: [facility], , KUB XRAY (1 VIEW ABDOMEN), 08/17/2015, 8:28. FINDINGS: Surgical changes and devices: None. Bowel: Bowel gas pattern is normal. Soft tissues: Redemonstrated bilateral nephrolithiasis. A 5.1 mm calculus projects over the left pelvis, which may reflect a ureteral calculus. Visualized solid organ contours appear normal in size. Bones: No suspicious bony lesions. IMPRESSION: 5.1 mm calculus projects over the left pelvis, which may reflect a ureteral calculus. Dictated by: Michael Magaña M.D. on 01/12/2021 at 14:52 Approved by: Michael Magaña M.D. on 01/12/2021 at 15:24
== END ==
PROVIDERS: PCP Family Medicine; Referring Provider Specialist; Visit Provider Specialist
DX: N20.1 Calculus of ureter (principal); R33.8 Other retention of urine
CPT/HCPCS: 74018

== ENCOUNTER → 2021-02-09 13:34 | Outpatient (CLI) | payer OTHER, SELFPAY | PROVIDERS: PCP Family Medicine; Referring Provider Specialist; Visit Provider Specialist | DX: R30.0 Dysuria (principal) | CPT/HCPCS: 87086 ==

== ENCOUNTER → 2021-02-09 14:31 | Outpatient (CLI) | payer OTHER, SELFPAY ==
--- NOTE | 2021-02-09 15:04 | DI.RAD.S_ITS ---
PROCEDURE: XR KUB INDICATIONS: Kidney stone TECHNIQUE: One view of the abdomen acquired. COMPARISON: [facility], CT, CT KIDNEY URETER BLADDER (KUB), 01/06/2021, 15:27. [facility], CR, XR KUB, 01/12/2021, 13:44. FINDINGS: Surgical changes and devices: None. Bowel: Bowel gas pattern is normal. Soft tissues: Bilateral abdominal calcifications measuring up to 3 mm on the right and 3 mm on the left. Bones: No suspicious bony lesions. IMPRESSION: Bilateral nephrolithiasis as above. A previously described left ureterovesical junction calculus is not well seen radiographically. CT KUB could be performed as clinically necessary. Dictated by: Garrett Ingram M.D. on 02/09/2021 at 16:40 Approved by: Garrett Ingram M.D. on 02/09/2021 at 16:42
[2021-02-09 16:25] LABS: Prostate Specific Antigen 3.54 ng/mL (0.10-4.00)
== END ==
PROVIDERS: PCP Family Medicine; Referring Provider Specialist; Visit Provider Specialist
DX: N40.0 Benign prostatic hyperplasia without lower urinary tract symptoms (principal); R97.20 Elevated prostate specific antigen [PSA]; N20.0 Calculus of kidney; N20.1 Calculus of ureter; R30.0 Dysuria
CPT/HCPCS: 36415; 51702; 74018; 84153; 87086

== ENCOUNTER → 2021-03-04 15:14 | Outpatient (CLI) | payer OTHER, SELFPAY ==
[2021-03-04 15:38] LABS: COVID19 -Nasal RAPID Negative (Negative)
== END ==
PROVIDERS: PCP Family Medicine; Visit Provider Specialist
DX: Z20.822 Contact with and (suspected) exposure to COVID-19 (principal)
CPT/HCPCS: 87635; C9803

== ENCOUNTER 2021-03-07 10:09 | Day surgery (SDC) | payer OTHER, SELFPAY ==
[2021-03-03 11:54] VITALS: BMI 23.8
[2021-03-07] VITALS (18 sets, daily range): BP systolic 109–158; BP diastolic 51–85; PULSE 61–80; RESP 10–18; TEMP 36.3–37.2; O2SAT 95–100; BMI 23.8
--- NOTE | 2021-03-07 09:19 | SUR.PREOP ---
Pt called at 0915 to report his BS of 400. He was told on Sunday to not take any insulin the night before his procedure. After talking to Dr. Calles he ask that the pt take 16units of his Lantus and 3.5 units of his Lispro and then recheck in 30 mins. Pt is due to check in for procedure at 1015. I also instructed Pt, per Dr Calles, if he felt hypoglycemic to eat a piece of hard candy or have no more than 4 ounces of clear juice such as apple juice.
[2021-03-07] MEDS: SODIUM CHLORIDE 0.9% 500 ML, NEOMYCIN/POLYMYXIN B IRR 1 ML IRR ×6 (10:55→12:30)
[2021-03-07] MEDS: LACTATED RINGERS 1,000 ML 42 ML IV ×2 (11:15→14:55)
--- NOTE | 2021-03-07 11:46 | SUR.PREOP ---
Dr Martinez updated in OR 4 regarding blood sugar checks since admit with most recent 3232 at 1120. See order in nursing communication to take own humalog at this time.
[2021-03-07] MEDS: GENTAMICIN 160 MG in SODIUM CHLORIDE 0.9% 100 ML 104 ML IV (12:00)
--- NOTE | 2021-03-07 12:44 | PM.PREOP ---
Pre-operative Note Interval Note History & Physical reviewed/Exam performed by Physician: Yes Changes to H&P: No
[2021-03-07] MEDS: AMPICILLIN/SULBACTAM 3 GM 3 GM in SODIUM CHLORIDE 0.9% 100 ML IV (13:20)
--- NOTE | 2021-03-07 13:44 | SUR.OPER ---
Lithotomy on padded OR bed, head on pillow, arms secured on padded arm boards at <90 degrees abduction. Legs secured in padded yellow fins stirrups.
[2021-03-07] MEDS: BELLADONNA/OPIUM SUPPOSITORIES 1 EACH PR (13:56)
--- NOTE | 2021-03-07 15:20 | P.OP_ITS ---
Operative Date/Time/Diagnoses Date of procedure: 03/07/21 Time of procedure: 15:21 Pre-op diagnosis: 1.Urinary retention. 2.Failure medical therapy and repeated voiding trials. 3. Bladder calculus Post-op diagnosis: same Procedure & Clinicians Procedure: 1. Transurethral resection of prostate. 2. Laser cystolitholapaxy. Same procedure as scheduled: Yes Indications: 1. Urinary retention. 2. Failure medical therapy and repeated voiding trials. 3. Bladder calculus. Surgeon: Ronnie Fisher Click Yes if Unassisted: Yes Anesthesia Type: General Operative Notes Findings: 1. Urethra-distal urethral meatus relatively stenotic and noncompliance despite gentle dilation with the Jennifer sounds to 28 [place]. 2. External sphincter slightly gaping with mild foreign body reaction. 3. Not with 4.5 cm prostate with obstructing trilobar hyperplasia. 4. Bladder-normal ureteral orifices bilaterally with clear efflux. Severe trabeculations and a small moderate-sized diverticulum emanating from the right eye posterior lateral wall containing the index calculus. Circumferential impingement the bladder neck due to prostate. Closure Type: not applicable Specimen(s): other (1. TUR chips. 2. Bladder calculus fragments. ) Applied: catheter (Number [address] hematuria catheter.) Estimated Blood Loss (mL): 5 Blood products transfused: none Procedure in detail: Patient was positioned in supine and was administered general anesthesia. He was then repositioned semi lithotomy lower abdomen, genitalia, and groin were then prepped and draped sterile fashion. The laser resectoscope was then passed Varsha tract with the findings as described above. A 365 micron fiber was then selected. The patient all operating room personnel were then fitted with laser safety eyewear. Lithotripsy was then commenced with excellent fragmentation of the calculus. Calculus was rinsed for within the diverticulum some of which came through the sheath of the resectoscope and the remainder lie within the bladder floor. Bladder was left partially filled and the laser resectoscope was then removed. Next, the 26 [place] resectoscope was passed lower urinary tract under direct visualization with the findings as described above. There was then fitted with the resecting loop. TUR incisions were then made at the 11 and 1:00 a.m. positions down to the level of the surgical capsule. The intervening tissue was then resected from bladder neck to just proximal to the verumontanum. Next, the left little lobe was resected successively if anteriorly to posteriorly, again from bladder neck to location just proximal to the verumontanum. Next, the right lateral lobe was taken down the same manner. Finally, the median lobe was resected from bladder neck to just proximal verumontanum. Apical lateral kissing tissue was intentionally on resecting. Hemostasis was obtained with the cautery and was excellent. All chips in the vast majority stone fragments were removed from the bladder with mechanical and hydrostatic means. The bladder was then left partially filled and the resectoscope was removed. A [address] hematuria catheter was then inserted into the lower urinary track, the balloons flatus 30 cc, and was then connected to the 0.9 normal saline continuous bladder irrigation. Patient was then repositioned supine, was awakened, then transferred to [facility] for transport to the PACU in stable condition. Complications: none Post-operative Condition: stable Plan for aftercare: Admit acute care.
[2021-03-07] MEDS: OXYCODONE IR 5 MG TABLET PO ×2 (15:40→16:09)
[2021-03-07] MEDS: ACETAMINOPHEN 325 MG TABLET 650 MG PO (16:10)
--- NOTE | 2021-03-07 17:02 | SUR.PHASEI ---
Patient transferred to room 210 in bed by this RN. Pt alert, orient, tolerating coffee without nausea. Continuous bladder irrigation infusing. No clots. [place] urine. SBAR report to Cinthya MANNING with update at bedside.
[2021-03-07] MEDS: INSULIN LISPRO 100 UNIT/ML 3ML VIAL SUBCUT (17:38)
--- NOTE | 2021-03-07 19:25 | PC.NURSE ---
A&Ox4. Pain around urethra opening 05/05. Cont. bladder irrigation draining dark pink urine. 1200 cc irrigated, 1275 output in bag. Urine output 75cc this shift. VSS. Monitors own BG with device connected to phone, checked against BG figner stick in PACU and comparable. SS humalog 4-6 units depending on patients BG and the meal he will have. He can determine his own dose per provider order. no skin concerns. Room air, 98%. Good appetite. Bed low, call light within reach.
[2021-03-07] MEDS: OXYCODONE IR 10 MG TABLET PO (20:58)
[2021-03-07] MEDS: LIDOCAINE 2% (GLYDO) 6 ML GEL TOP (20:58)
[2021-03-07] MEDS: INSULIN GLARGINE 100 UNIT/ML 3ML PEN 16 UNIT SUBCUT (21:05)
[2021-03-08 00:44] VITALS: PULSE 67; RESP 18; O2SAT 97
[2021-03-08] MEDS: OXYCODONE IR 10 MG TABLET PO ×3 (02:07→12:57)
[2021-03-08 04:00] VITALS: BP 102/60; PULSE 74; RESP 18; TEMP 37.2; O2SAT 97
--- NOTE | 2021-03-08 07:39 | P.PN_ITS ---
Subjective Subjective Date Patient Seen: 03/08/21 Time Patient Seen: 07:39 Interval history: Postoperative morning 1. Status post transurethral resection of prostate and laser cystolitholapaxy. Patient reports uneventful night other than distal penile tip and urethral pain. He is tolerating general diet and passing gas. Exam Vital Signs (past 8 hours): - 03/07/21 23:45 03/08/21 00:44 03/08/21 04:00 Temperature 98.9 F 99.0 F Pulse Rate 67 67 74 Respiratory Rate 18 18 18 Blood Pressure 109/51 L 102/60 Pulse Oximetry 97 97 97 Oxygen Delivery Method Room Air Oxygen Flow Rate 0 Narrative Exam Narrative: He is sitting upright and comfortable without distress in bed. Abdomen is scaphoid, soft, nontender. Stringer is indwelling with light pink outflow and without clot. Extremities are warm common without cyanosis or pallor. [facility] Medical History Benign prostatic hyperplasia Bladder calculus BPH w urinary obs/LUTS Calculus of kidney COVID-19 (05/2020) Diabetes mellitus type 1A (~2010) Kidney stones Urinary retention Viral illness Social History marital status: household members: none Smoking Status: Never smoker alcohol intake: current substance use type: does not use Assessment & Plan Assessment and plan (1) Benign prostatic hyperplasia: Qualifiers: Lower urinary tract symptom presence: symptoms present Lower urinary tract symptom detail: nocturia Qualified Code(s): N40.1 - Benign prostatic hyperplasia with lower urinary tract symptoms; R35.1 - Nocturia Status: None (2) Bladder calculus: Status: Acute Plan 1. Plug Stringer inflow and ambulate. 2. Anticipate discharge with indwelling Stringer today. 3. Will schedule outpatient voiding trial in the Urology Clinic. 4. Pathology pending. Time Spent With Patient Critical Care time: I spent a total of [] minutes of critical care time on this patient's care today; this time is exclusive of procedural time. Quality VTE Deep Vein Thrombosis/Pulmonary Embolism Present on Admission: No
[2021-03-08 08:00] VITALS: BP 113/79; PULSE 78; RESP 16; TEMP 37.1; O2SAT 98
[2021-03-08] MEDS: TAMSULOSIN 0.4 MG CAPSULE 0.8 MG PO (08:01)
[2021-03-08] MEDS: INSULIN LISPRO 100 UNIT/ML 3ML VIAL SUBCUT ×2 (08:40→12:30)
--- NOTE | 2021-03-08 09:35 | CM.DANOTE ---
DCP: Case received, EMR reviewed and met with patient. Introduced self and role. Was able to obtain information regarding patient's baseline activity level prior to surgery. DCP assessment completed with information currently available. Patient is a 65 year old male who admitted yesterday morning to the care of the urologist. PCP: Dr. Haas. Payer: confirmed: [facility]. Patient came to the hospital for a surgical procedure. He had a transurethral resection of his prostate. Patient has had history of urinary retention. According to provider notes, patient should be discharging with arevalo in place, and will follow up at urology office. Met with patient in his room. He was sitting up in bed getting ready to have his breakfast. He is alert and oriented, pleasant. He resides here in [place] alone, he is a . He is independent at his baseline, and is employed at [employer]. P: DCP to continue to follow for any needs. Patient should be able to go home when he is deemed medically stable. Aislinn Alvarado RN/Machine Oiler Discharge Planning/Care Management CM Discharge Assessment Start: 03/08/21 09:33 Freq: Status: Active Protocol: Document 03/08/21 09:34 (Rec: 03/08/21 09:35 [id number]) Discharge Planning Assessment Assigned Sales Leader Aislinn Alvarado RN/Machine Oiler Advance Directives? No History Provided By Patient,Medical Record Prior Living Arrangements House Household Members none Type of transporation used prior to Drives own vehicle admit Independent with ADL's Yes Is patient alert and oriented? Yes Caregiver for Another No Barriers to Discharge No Discharge Plan Home Transportation Arrangement Friend or family Referrals Initiated None needed Whiteboard Updated in Patient Room with Yes name and ext. # of Sales Leader Review Status In Process Next Review Type Continued Stay Review Pre-Anesthesia Assessment Start: 03/03/21 11:54 Freq: Status: Active Protocol: Document 03/03/21 11:54 CAB (Rec: 03/03/21 12:20 CAB [id number]) Pre-Anesthesia Assessment Patient Information Reviewed Via Chart Review Comment COVID screen @ 03/04/21 Primary Care Provider Ralph Haas Seen Specialist in Last 12 Months Yes Specialist Seen Urologist Primary Language Citizen Of [place] Commercial Mortgage Broker Required No Height 5 ft 6 in Weight 148 lb Body Mass Index (BMI) 23.8 Anesthesia Review Requested No Awning Hanger No alcohol intake current alcohol intake frequency a few times a week Smoking Status Never smoker Substance Use Type does not use Patient is completely paralyzed or No completely immobile Mental Status Oriented to own ability Currently Taking a Beta [place] No Anti-Coagulant Therapy No Hx Pacemaker/ICD No Pacemaker Rep Required? No Bladder Pattern Retention Urinary Catheter Present Yes Hx Urinary Self Catheterization No Diabetes Yes: Type 1 Presence of External or Internal Medical Yes: Continous glucose monitor Devices Have you had any close contact with Yes: Pt COVID + 05/25/20 someone diagnosed with COVID-19? Received a COVID vaccine? Yes Marital Status / Patient Discharge Plan Description Return Home Advance Directives? No
--- NOTE | 2021-03-08 13:32 | PC.NURSE ---
A&Ox4. VSS. Pain 2/10, relieved with lidocaine and oxycodone. B, given 3 units of insulin at lunch. Stringer draining dark pink urine. Walked in the hallway with staff. Discharge paperwork reviewed. Leg bag given for changing at home. Questions answered. IV removed. Wheeled off unit at at 13:25, daughter driving home.
--- NOTE | 2021-03-08 17:41 | P.DS_ITS ---
History of Present Illness History of Present Illness Date Patient Seen: 03/08/21 Time Patient Seen: 11:00 Chief complaint: OPB Narrative: The patient is a 65-year-old male admitted on 03/07/2021, for treatment of urinary retention, bladder calculus, and failure of multiple voiding trials on medical therapy. Discharge Providers Provider Date of admission: 03/07/2021 Discharge Date: 03/08/21 Primary care physician: Ralph Haas MD Discharge provider: Ronnie Fisher MD Summary Hospital Course Discharge Diagnosis: 1. Urinary retention. Hospital Course: The patient was admitted on the morning of 03/07/2021 underwent uncomplicated transurethral resection of the prostate and laser cystolitholapaxy under general anesthesia. His postop course was largely unremarkable in that he tolerated a general diet, was able to ambulate independently, and had return of bowel function by the 1st postoperative morning. Postoperative discomfort was managed with topical lidocaine and oral narcotic analgesic without difficulty. On the morning of 03/08/2021 he was stable for discharge after interrupting continues bladder irrigation. Pathology was pending at discharge. Exam Vital Signs (past 8 hours): Oxygen Delivery Method Room Air Oxygen Flow Rate 0 Narrative Exam Narrative: Not repeated following examination earlier this day. [facility] Medical History Benign prostatic hyperplasia Bladder calculus BPH w urinary obs/LUTS Calculus of kidney COVID-19 (05/2020) Diabetes mellitus type 1A (~2010) Kidney stones Urinary retention Viral illness Social History marital status: household members: none Smoking Status: Never smoker alcohol intake: current substance use type: does not use Discharge Assessment & Plan Assessment and Plan Assessment: 1. Stable postoperative day 1. Status post transurethral resection of prostate and laser cystolitholapaxy. 2. Pathology pending. Plan of Treatment: 1. Discharge home today. 2. Follow-up in discuss pathology report when final as outpatient. 3. Will arrange outpatient voiding trial for 03/10/2021. Discharge Plan Discharge Plan Patient Disposition: Home Provider Discharge Comment: Contact the urology clinic later today or tomorrow early a.m. to schedule outpatient visit. Discharge orders & Medications Discharge Orders: Discharge (Order); Ordered 03/08/21 Ordered By: Ronnie Fisher Prescriptions: New oxycodone 10 mg Tablet 10 mg PO Q3HR PRN (Reason: Pain, Severe (7-10)) Qty: 10 0RF nitrofurantoin monohyd/m-cryst [Macrobid] 100 mg capsule 100 mg PO BID Qty: 10 0RF Rx Instructions: must administer with a meal/food Continued Lantus Solostar U-100 Insulin 100 unit/mL (3 mL) insulin pen 16 unit SUBCUT HS Qty: 15 4RF insulin lispro [Humalog KwikPen Insulin] 100 unit/mL insulin pen 7 unit SUBCUT TID Qty: 30 3RF Rx Instructions: Use three times daily before meals. Ultra CoQ10 75 mg capsule 75 mg PO DAILY 0RF red yeast rice 600 mg capsule 600 mg PO DAILY 0RF Rx Instructions: give with meal/snack Discontinued tamsulosin [Flomax] 0.4 mg capsule 0.8 mg PO QDAY Qty: 180 1RF ciprofloxacin HCl 250 mg tablet 250 mg PO BID Qty: 6 0RF Rx Instructions: Start morning the day before Stringer catheter removal. Follow up/Referrals: Ralph Haas MD [Primary Care Provider] - Diet/Activity/Treatments Diet: Carb-consistent/Diabetic Activity: No lifting greater than 15 lb or strenuous activity x4 weeks. Catheter: 2-way Stringer Catheter comment: Catheter care as preoperatively understood. Skin/Wound/Dressing Care Report to your healthcare provider any signs of infection, such as:: chills, fever, night sweats, increased pain and unusual drainage Visit Report/Discharge Packet Instructions: How to Care for Your Stringer Catheter -- Male, DI for Cystoscopy, DI for Transurethral Resection of the Prostate Stand Alone Forms: Surgery Discharge Discharge Data Primary Care Provider: Ralph Haas Attending Provider: Ronnie Fisher Quality VTE Deep Vein Thrombosis/Pulmonary Embolism Present on Admission: No
[2021-03-14 14:09] LABS: Ca oxalate dihydrate 30 % (.); Ca oxalate monohydr 70 % (.); Size 4x4 mm (.)
== END 2021-03-08 13:25 | disposition home or self-care (01) ==
LOC: OR 10:10 → AC 16:31
PROVIDERS: PCP Family Medicine; Referring Provider Specialist; Visit Provider Specialist
PROC: 0VT08ZZ Resection of Prostate, Via Natural or Artificial Opening Endoscopic (ICD-10-PCS; CPT 52601; principal; 2021-03-07 12:15)
PROC: 0TCB8ZZ Extirpation of Matter from Bladder, Via Natural or Artificial Opening Endoscopic (ICD-10-PCS; CPT 52601; 2021-03-07 12:15)
DX: N40.1 Benign prostatic hyperplasia with lower urinary tract symptoms (principal); R33.9 Retention of urine, unspecified; N21.0 Calculus in bladder; R35.1 Nocturia; E10.9 Type 1 diabetes mellitus without complications; Z79.4 Long term (current) use of insulin
CPT/HCPCS: 52601; 52317; 82365; 82962; 94762; J0295; J1815; J2405; J2704; J3010

== ENCOUNTER 2021-03-10 06:42 | Emergency (ER) | payer OTHER, SELFPAY ==
[2021-03-07 17:03] VITALS: BMI 23.8
[2021-03-10 06:55] VITALS: BP 166/88; PULSE 89; RESP 18; TEMP 36.5; O2SAT 98; BMI 24.2
[2021-03-10] MEDS: LIDOCAINE 2% (GLYDO) 6 ML GEL TOP (07:14)
--- NOTE | 2021-03-10 07:29 | ED.MALEGU ---
HPI - Male Genitourinary General Chief complaint: Urogenital-Male Stated complaint: cant urinate x6 hours Time Seen by Provider: 03/10/21 07:07 Source: patient Mode of arrival: Ambulatory History of Present Illness HPI Narrative: 65-year-old type 1 insulin with kidney stones and BPH with TUR and laser cystolitholapaxy 3 days ago presents with acute urinary retention. He remains on 0.8 mg of tamsulosin. He had a 24 hour period of catheterization postop which was removed yesterday, intermittent difficulty with voiding yesterday and for the last 6 hours has not been able to void at all with significant increasing pain. No fevers, cough, chills, palpitations, shortness of breath, lower extremity edema. He has noted some clots in his urine when he was able to produce urine. He is not having any flank pain. Related Data Home Medications Medication Instructions Recorded Confirmed coenzyme Q10 75 mg capsule (Ultra 75 mg PO DAILY 01/12/21 03/07/21 CoQ10) red yeast rice 600 mg capsule 600 mg PO DAILY 01/12/21 03/07/21 Previous Rx's Medication Instructions Recorded insulin glargine 100 unit/mL (3 16 unit (0.16 mL) SUBCUT HS #15 ml 05/31/20 mL) subcutaneous pen (Lantus Solostar U-100 Insulin) insulin lispro 100 unit/mL 7 unit (0.07 mL) SUBCUT TID #30 ml 06/09/20 subcutaneous pen (Humalog KwikPen (U-100) Insulin) nitrofurantoin 100 mg PO BID #10 cap 03/08/21 monohydrate/macrocrystals 100 mg capsule (Macrobid) oxycodone 10 mg tablet 10 mg PO Q3HR PRN #10 tab 03/08/21 ciprofloxacin HCl 250 mg tablet 250 mg PO BID #6 tab 03/10/21 Allergies Allergy/AdvReac Type Severity Reaction Status Date / Time No Known Drug Allergies Allergy Verified 03/07/21 10:43 Review of Systems Review of Systems Narrative: Remainder of complete review of systems is otherwise unremarkable except for that included in the HPI. Patient History Medical History Bladder calculus BPH w urinary obs/LUTS Calculus of kidney COVID-19 (05/2020) Diabetes mellitus type 1A (~2010) Kidney stones Urinary retention Viral illness Surgical History H/O transurethral resection of prostate Social History marital status: household members: none Smoking Status: Never smoker alcohol intake: current substance use type: does not use Smoking Status: Never smoker alcohol intake frequency: a few times a week Alcohol type: beer Substance Use Type: does not use Exam Narrative Exam Narrative: General: Alert appropriate in no acute distress Respiratory: Able to speak in full sentences, no obvious respiratory distress Abdomen: Distended and tender without rebound or guarding no flank pain Skin: No obvious rashes, warm and dry Neurologic: Grossly intact no obvious asymmetries or abnormalities Psych: appropriate insight and affect, cooperative Stringer catheter 16 Japanese single-lumen placed without difficulty with 1200 cc of dark red/bloody urine and occasional small clots drained without difficulty Initial Vital Signs Initial Vital Signs: Vital Signs Temperature 97.7 F 03/10/21 06:55 Pulse Rate 89 03/10/21 06:55 Respiratory Rate 18 03/10/21 06:55 Blood Pressure 166/88 H 03/10/21 06:55 Pulse Oximetry 98 03/10/21 06:55 Course Orders Ordered: Discontinued Medications Lidocaine HCl (Lidocaine 2% (Glydo) 6 Ml Gel) 6 ml TOP NOW ONE Stop: 03/10/21 07:01 Last Admin: 03/10/21 07:14 Dose: 6 ml Documented by: [email or web address] Vital Signs Vital signs: Vital Signs - 8 hr 03/10/21 06:55 Temperature 97.7 F Pulse Rate 89 Respiratory Rate 18 Blood Pressure 166/88 H Pulse Oximetry 98 MDM - Male Genitourinary MDM Narrative Medical decision making narrative: 65-year-old gentleman 3 days post transurethral resection of the prostate with recurrent complaints of acute urinary retention. Stringer catheter placed and a mild amount of flushing is done to try to clear any additional clots. Pain was immediately relieved as soon is bladder with catheterized. Patient has an appointment with his urologist at 8:00 a.m. this morning. Discharge Plan Departure Patient Disposition: Home Clinical Impression: BPH w urinary obs/LUTS, Acute retention of urine Instructions: DI for Urinary Retention in Men Activity Restrictions/Additional Instructions: Thank you for coming in today I suspect that there is just a small amount of swelling after your prostate surgery. Once the swelling is down I fully anticipate you wound continue to have Acute urinary retention issues. 1200 cc of urine was in your bladder this morning. You have a 16 gauge Stringer catheter now. Please keep your appointment with Dr. Fisher at 8:00 a.m. I wish you the best Prescriptions: No Action Lantus Solostar U-100 Insulin 100 unit/mL (3 mL) insulin pen 16 unit SUBCUT HS Qty: 15 4RF insulin lispro [Humalog KwikPen Insulin] 100 unit/mL insulin pen 7 unit SUBCUT TID Qty: 30 3RF Rx Instructions: Use three times daily before meals. oxycodone 10 mg Tablet 10 mg PO Q3HR PRN (Reason: Pain, Severe (7-10)) Qty: 10 0RF nitrofurantoin monohyd/m-cryst [Macrobid] 100 mg capsule 100 mg PO BID Qty: 10 0RF Rx Instructions: must administer with a meal/food Ultra CoQ10 75 mg capsule 75 mg PO DAILY 0RF red yeast rice 600 mg capsule 600 mg PO DAILY 0RF Rx Instructions: give with meal/snack ciprofloxacin HCl 250 mg tablet 250 mg PO BID Qty: 6 0RF Rx Instructions: Begin taking 1 day prior to catheter removal Referrals: Ralph Haas MD [Primary Care Provider] -
[2021-03-10 07:40] VITALS: BP 131/71; PULSE 77; RESP 16; O2SAT 98
== END 2021-03-10 07:51 | disposition home or self-care (01) ==
PROVIDERS: Emergency Provider Emergency Medicine; PCP Family Medicine
DX: N40.1 Benign prostatic hyperplasia with lower urinary tract symptoms (principal); R33.8 Other retention of urine
CPT/HCPCS: 51702; 51798; 99283

== ENCOUNTER → 2021-04-08 07:19 | Outpatient (CLI) | payer OTHER, MEDICARE, SELFPAY ==
[2021-03-16 08:05] VITALS: BMI 23.8
[2021-04-08 10:13] LABS: Prostate Specific Antigen 1.69 ng/mL (0.10-4.00)
== END ==
PROVIDERS: PCP Family Medicine; Referring Provider Specialist; Visit Provider Specialist
DX: N13.8 Other obstructive and reflux uropathy (principal); N40.1 Benign prostatic hyperplasia with lower urinary tract symptoms; Z90.79 Acquired absence of other genital organ(s); Z98.890 Other specified postprocedural states
CPT/HCPCS: 36415; 84153

== ENCOUNTER 2021-04-11 06:48 | Emergency (ER) | payer OTHER, SELFPAY ==
[2021-03-16 08:05] VITALS: BMI 23.8
[2021-04-11] VITALS (12 sets, daily range): BP systolic 125–186; BP diastolic 63–84; PULSE 72–93; RESP 11–37; TEMP 37; O2SAT 97–100; BMI 24.2
--- NOTE | 2021-04-11 07:28 | ED.NEUROSD ---
HPI - Neuro Symptoms/Deficit General Chief Complaint: Neuro Symptoms/Deficit Stated Complaint: left shoulder numb x2 hours Time Seen by Provider: 04/11/21 06:58 Source: patient Mode of arrival: Ambulatory Limitations: no limitations History of Present Illness HPI Narrative: This is a pleasant 65-year-old male who states he woke up this morning and noted that he had some numbness over left deltoid region. Patient states that he got up went to try to work out and realized his left upper extremity was weaker than his right. He typically uses weights and states that he could not lift as well. Patient states the numbness does not radiate all the way down his arm. He does not have any pain he denies any pain in or discomfort in his neck. No headaches. No vision changes. No difficulty with speech. States he does not appreciate weakness in his lower extremities. He has not had similar symptoms in the past. Patient denies any chest pain, shortness of breath, no nausea vomiting, GI or urinary symptoms. Patient is insulin-dependent diabetic and is on Lantus. He takes red yeast rice for hypertension and Co Q10. He does not have a known history of hypertension. He did have a prostate procedure with Dr. Fisher and is on tamsulosin. He had his booster shot in his left arm the [employer] in the last couple weeks. He takes an aspirin 81 mg at night. He has not had any other surgeries besides urologic procedure. No allergies. No tobacco. He has 4 glasses nightly on the weekends. No illicit. Dr. Haas is his PCP. On Anticoagulants: No Related Data Home Medications Medication Instructions Recorded Confirmed coenzyme Q10 75 mg capsule (Ultra 75 mg PO DAILY 01/12/21 03/07/21 CoQ10) red yeast rice 600 mg capsule 600 mg PO DAILY 01/12/21 03/07/21 Previous Rx's Medication Instructions Recorded insulin lispro 100 unit/mL 7 unit (0.07 mL) SUBCUT TID #30 ml 06/09/20 subcutaneous pen (Humalog KwikPen (U-100) Insulin) insulin glargine 100 unit/mL (3 16 unit (0.16 mL) SUBCUT HS #30 ml 04/04/21 mL) subcutaneous pen (Lantus Solostar U-100 Insulin) prednisone 10 mg tablets in a dose See Rx Instructions .ROUTE 04/11/21 pack .COMPLEX #18 ea Allergies Allergy/AdvReac Type Severity Reaction Status Date / Time No Known Drug Allergies Allergy Verified 03/31/21 08:33 Review of Systems Review of Systems ROS Unobtainable: All systems reviewed & are unremarkable except as noted in HPI and below Hematologic/Lymphatic On Anticoagulants: No Patient History Medical History Bladder calculus BPH w urinary obs/LUTS Calculus of kidney COVID-19 (05/2020) Diabetes mellitus type 1A (~2010) Kidney stones Urinary retention Viral illness Surgical History H/O transurethral resection of prostate Social History marital status: household members: none Smoking Status: Never smoker alcohol intake: current substance use type: does not use Smoking Status: Never smoker alcohol intake frequency: 3 or more drinks per day Alcohol type: wine Substance Use Type: does not use Exam Narrative Exam Narrative: GEN: well nourished, well appearing male, alert and oriented x 3, patient appears to be in mild distress. HEENT: Atraumatic, pupils are equal round reactive to light, extraocular movements are intact, nares are clear, no facial droop. Clear speech. HEART: Regular rate and rhythm without murmur, clicks, rubs. pulses are equal in upper extremities LUNGS:Lungs clear to auscultation, no wheezes, rales, crackles, chest moves symmetrically ABD:bowel sounds normal, soft, non-tender, no guarding, rebound, rigidity, no masses noted, no hepatosplenomegaly :No CVA tenderness MSCL: Patient is nontender over the cervical, thoracic and lumbar spine. Non-tender, no muscle atrophy, muscles strength 5/5 lower extremities, patient has 5/5 strength on his right upper extremity 4/5 on the left upper extremity. Yeast Fermentation Attendant are slightly decreased left compared to right. Patient is able to hold his arms without drift for 10/10 seconds but against resistance he has significant weakness on the left compared to the right. Negative Spurling's. Full range of motion, normal gait NEURO:CN 2-12 intact, sensation normal, finger nose finger test normal, heel villagomez test normal Initial Vital Signs Initial Vital Signs: Vital Signs Temperature 98.6 F 04/11/21 07:01 Pulse Rate 93 H 04/11/21 07:01 Respiratory Rate 18 04/11/21 07:01 Blood Pressure 186/84 H 04/11/21 07:01 Pulse Oximetry 98 04/11/21 07:01 Scores NIH Stroke Scale Level of Conciousness: Alert, keenly responsive Ask month/age: Answers both questions correctly. Open/close eyes, close hand: Performs both tasks correctly Best gaze horizontal: Normal Visual lopez: No visual loss Facial palsy: Normal symetrical movement Left arm drift: Drifts down, not to bed (no drift patient is weak with resistance.) Right arm drift: No drift for full 10 sec Left leg drift: No drift for full 5 sec Right leg drift: No drift for full 5 sec Limb ataxia: Absent Sensory on face/arms/legs: Normal, no sensory loss Best language: No aphasia, normal Dysarthria: Normal Extinction or inattention: No abnormality Total NIH Stroke scale score: 1 Course Orders Ordered: ED Orders 04/11/21 10:29 MR head/brain wo con Stat Discontinued Medications Aspirin (Aspirin 81 Mg Chew Tab) 324 mg PO NOW ONE Stop: 04/11/21 10:19 Last Admin: 04/11/21 12:28 Dose: Not Given Documented by: ATAYLOR Sodium Chloride (Normal Saline 0.9%) 1,000 mls @ 150 mls/hr IV CONT ADAMA Last Admin: 04/11/21 08:24 Dose: Not Given Documented by: KENTON Reevaluation(s) Reevaluation #1: Patient continues to have weakness his left [place] extremities states the numbness in his deltoid is a little bit improved but against resistance he does have some left upper extremity weakness he has good hair dresser bilaterally. Review patient's plan for MRI which and being negative this was also reviewed. Med for patient to follow-up with his primary care to evaluate for possible nerve impingement. Consultations Consultation #1: Dr. Haas, Vital Signs Vital signs: Vital Signs - 8 hr 04/11/21 12:26 04/11/21 12:27 Pulse Rate 75 Respiratory Rate 16 Blood Pressure 147/65 H Pulse Oximetry 100 98 MDM - Neuro Symptoms/Deficit Lab Data Result diagrams: 04/11/21 07:25 01/17/22 07:25 Labs: Lab Results 04/11/21 04/11/21 04/11/21 Range/Units 07:25 07:25 07:41 WBC 5.4 (4.5-11.0) X10^3/uL RBC 4.18 L (4.5-5.9) X10^6/uL Hgb 13.9 (13.5-17.5) g/dL Hct 40.7 L (41-53) % MCV 97.4 (80-100) fL MCH 33.2 (26-34) PG MCHC 34.0 (30-36) % RDW 14.0 (11.6-14.8) % Plt Count 322 (150-400) X10^3/uL Neut % (Auto) 65.5 (50-75) % Lymph % (Auto) 24.9 L (25-40) % [place] % (Auto) 5.3 (3-14) % Eos % (Auto) 3.7 (2-4) % Baso % (Auto) 0.6 (0-2) % Neut # (Auto) 3500 (9969-6371) /uL Lymph # (Auto) 1300 (0954-3832) /uL [place] # (Auto) 300 (0-900) /uL Eos # (Auto) 200 (0-450) /uL Baso # (Auto) 0 (0-100) /uL Sodium 137 (137-145) mmol/L Potassium 4.3 (3.4-5.1) mmol/L Chloride 101 (98-107) mmol/L Carbon Dioxide 31 (22-32) mmol/L BUN 27 H (9-20) mg/dL Creatinine 0.67 (0.66-1.25) mg/dL Estimated GFR > 60.0 (>60) mL/min BUN/Creatinine Ratio 40.3 H (6-22) Glucose 169 H (80-110) mg/dL Calcium 9.5 (8.4-10.2) mg/dL Total Bilirubin 0.5 (0.2-1.3) mg/dL AST 22 (17-59) IU/L ALT 19 (<50) IU/L Alkaline Phosphatase 56 (38-126) U/L Total Protein 7.1 (6.3-8.2) g/dL Albumin 4.4 (3.5-5.0) g/dL Globulin 2.7 (1.7-4.1) g/dL Albumin/Globulin Ratio 1.6 (1.0-2.8) Urine RBC (0-5/HPF) Urine WBC (0-5/HPF) Ur Squamous Epith Cells (0-5/HPF) Urine Bacteria (None) Ur Culture Indicated? U Opiates 300ng/mL cut Negative (Negative) Ur Oxycodone Screen Negative (Negative) Urine Methadone Screen Negative (Negative) Ur Barbiturates Screen Negative (Negative) U Tricyclic Antidepress Negative (Negative) Ur Phencyclidine Scrn Negative (Negative) Ur Amphetamines Screen Negative (Negative) U Methamphetamines Scrn Negative (Negative) Ur MDMA Scrn (Ecstasy) Negative (Negative) U Benzodiazepines Scrn Negative (Negative) Urine Cocaine Screen Negative (Negative) U Marijuana (THC) Screen Negative (Negative) 04/11/21 Range/Units 07:44 WBC (4.5-11.0) X10^3/uL RBC (4.5-5.9) X10^6/uL Hgb (13.5-17.5) g/dL Hct (41-53) % MCV (80-100) fL MCH (26-34) PG MCHC (30-36) % RDW (11.6-14.8) % Plt Count (150-400) X10^3/uL Neut % (Auto) (50-75) % Lymph % (Auto) (25-40) % [place] % (Auto) (3-14) % Eos % (Auto) (2-4) % Baso % (Auto) (0-2) % Neut # (Auto) (2298-3793) /uL Lymph # (Auto) (6980-2712) /uL [place] # (Auto) (0-900) /uL Eos # (Auto) (0-450) /uL Baso # (Auto) (0-100) /uL Sodium (137-145) mmol/L Potassium (3.4-5.1) mmol/L Chloride (98-107) mmol/L Carbon Dioxide (22-32) mmol/L BUN (9-20) mg/dL Creatinine (0.66-1.25) mg/dL Estimated GFR (>60) mL/min BUN/Creatinine Ratio (6-22) Glucose (80-110) mg/dL Calcium (8.4-10.2) mg/dL Total Bilirubin (0.2-1.3) mg/dL AST (17-59) IU/L ALT (<50) IU/L Alkaline Phosphatase (38-126) U/L Total Protein (6.3-8.2) g/dL Albumin (3.5-5.0) g/dL Globulin (1.7-4.1) g/dL Albumin/Globulin Ratio (1.0-2.8) Urine RBC 10-30/hpf H (0-5/HPF) Urine WBC >100/hpf H (0-5/HPF) Ur Squamous Epith Cells 0-1 /hpf (0-5/HPF) Urine Bacteria Moderate (10-30) H (None) Ur Culture Indicated? Specimen cultured U Opiates 300ng/mL cut (Negative) Ur Oxycodone Screen (Negative) Urine Methadone Screen (Negative) Ur Barbiturates Screen (Negative) U Tricyclic Antidepress (Negative) Ur Phencyclidine Scrn (Negative) Ur Amphetamines Screen (Negative) U Methamphetamines Scrn (Negative) Ur MDMA Scrn (Ecstasy) (Negative) U Benzodiazepines Scrn (Negative) Urine Cocaine Screen (Negative) U Marijuana (THC) Screen (Negative) Urine Dip Bedside Urine Glucose Negative Bedside Urine Bilirubin - Negative Bedside Urine Ketone - Negative Urine Specific Fowler 1.025 Bedside Urine Occult Blood +++ Bedside Urine pH 6.0 Bedside Urine Protein + 30 Bedside Urine Urobilinogen - Negative Bedside Urine Nitrite - Negative Bedside Urine Leukocytes ++ 125 Esterase ECG Data Attestation: I personally reviewed and interpreted this ECG as follows: Interpretation: Sinus rhythm with sinus arrhythmia. Rate of 74 OR 150 QRS 86 and QTC 421. No acute ST changes appreciated. Nonspecific. Patient has prior EKG from 03/16/2020 which appears to show atrial fib or flutter. [facility] Narrative Medical decision making narrative: This is a 65-year-old male comes in with left upper extremity weakness. Patient states he woke up with the symptoms. Concern for possible stroke verses nerve impingement. Patient is without any pain. He has a history of diabetes and is on insulin red yeast rice and he states he has been encouraged to start a statin and is noted on review of his prior EKGs that he had AFib or flutter and had been initiated for Pradaxa but does not take any anticoagulant more than aspirin 161 mg daily. On exam patient has sensation record changer the deltoid but he does have weakness of the left upper extremity in comparison to the right. Cervical impingement is included differential but his findings are concerning for potential stroke. Patient woke up with his symptoms so he is outside the window for tPA. Labs does show any acute cause for his symptoms. CT head, C-spine and angio are included this shows some slight changes at the C-spine. Otherwise negative but still concern with his left upper extremity weakness with no MRI was performed and is negative. I did speak with his primary care physician who will follow up with him. Discharge Plan Departure Patient Disposition: Home Clinical Impression: Radiculopathy affecting upper extremity Activity Restrictions/Additional Instructions: Follow-up with Dr. Haas. Your MRI today is negative for stroke. Dr. Haas can help follow-up with the rest of your workup. I would also recommend up following up with Orthopedic surgery or a spinal surgeon. Referral is included below. I would recommend a short course of steroids. Prescription sent to [facility] Return for your back pain, neck pain or pain in your upper extremity, worsening weakness numbness or loss of sensation, inability to lift or move your arm or other new or concerning symptoms. Prescriptions: New prednisone 10 mg tablets,dose pack See Rx Instructions .ROUTE .COMPLEX Qty: 18 0RF Rx Instructions: Take 3 tablets by mouth daily x3 then 2 tablets by mouth x3 days, then 1 tablet by mouth x3 days No Action insulin lispro [Humalog KwikPen Insulin] 100 unit/mL insulin pen 7 unit SUBCUT TID Qty: 30 3RF Rx Instructions: Use three times daily before meals. Lantus Solostar U-100 Insulin 100 unit/mL (3 mL) insulin pen 16 unit SUBCUT HS Qty: 30 4RF Ultra CoQ10 75 mg capsule 75 mg PO DAILY 0RF red yeast rice 600 mg capsule 600 mg PO DAILY 0RF Rx Instructions: give with meal/snack Referrals: Ralph Haas MD [Primary Care Provider] - Driss Duckworth MD [Physician] -
[2021-04-11 07:48] LABS: Add Manual Diff / Slide Review NO; Basophils Absolute Auto 0 /uL (0-100); Basophils Percent Auto 0.6 % (0-2); Eosinophils Absolute Auto 200 /uL (0-450); Eosinophils Percent Auto 3.7 % (2-4); Hematocrit 40.7 % (41-53); Hemoglobin 13.9 g/dL (13.5-17.5); Lymphocytes Absolute Auto 1300 /uL (1100-4500); Lymphocytes Percent Auto 24.9 % (25-40); Mean Corpuscular Hemoglobin 33.2 PG (26-34); Mean Corpuscular Volume 97.4 fL (80-100); Monocytes Absolute Auto 300 /uL (0-900); Monocytes Percent Auto 5.3 % (3-14); Neutrophils Absolute Auto 3500 /uL (1500-7000); Neutrophils Percent Auto 65.5 % (50-75); Platelet Count 322 X10^3/uL (150-400); Red Blood Cell Count 4.18 X10^6/uL (4.5-5.9); White Blood Cell Count 5.4 X10^3/uL (4.5-11.0)
[2021-04-11 07:49] LABS: Alanine Aminotransferase 19 IU/L (<50); Albumin 4.4 g/dL (3.5-5.0); Albumin Globulin Ratio 1.6 (1.0-2.8); Alkaline Phosphatase 56 U/L (38-126); Aspartate Aminotransferase 22 IU/L (17-59); BUN Creatinine Ratio 40.3 (6-22); Bilirubin Total 0.5 mg/dL (0.2-1.3); Blood Urea Nitrogen 27 mg/dL (9-20); Calcium 9.5 mg/dL (8.4-10.2); Carbon Dioxide 31 mmol/L (22-32); Chloride 101 mmol/L (98-107); Estimated Glomerular Filt Rate > 60.0 mL/min (>60); Globulin 2.7 g/dL (1.7-4.1); Glucose 169 mg/dL (80-110); HEMOLYSIS < 15 (0-50); Potassium 4.3 mmol/L (3.4-5.1); Sodium 137 mmol/L (137-145); Total Protein 7.1 g/dL (6.3-8.2)
--- NOTE | 2021-04-11 07:56 | DI.CT.S_ITS ---
PROCEDURE: CT HEAD/BRAIN WO CON INDICATIONS: Left upper ext weakness, woke up with it. TECHNIQUE: Noncontrast 4.5 mm thick angled axial sections acquired from the foramen magnum to the vertex, with coronal and sagittal reformats. For radiation dose reduction, the following was used: automated exposure control, adjustment of mA and/or kV according to patient size. COMPARISON: None. FINDINGS: Image quality: Excellent. CSF spaces: Basal cisterns are patent. No extra-axial fluid collections. Ventricles are normal in size and shape. Brain: No midline shift. No intracranial masses or hemorrhage. Gauthier-white matter interface is normal. Skull and face: Calvarium and visualized facial bones are intact, without suspicious lesions. Sinuses: Visualized sinuses and mastoids are clear. IMPRESSION: No acute intracranial finding. Dictated by: Ralph Covington M.D. on 04/11/2021 at 8:48 Approved by: Ralph Covington M.D. on 04/11/2021 at 8:49
--- NOTE | 2021-04-11 07:56 | DI.CT.S_ITS ---
PROCEDURE: CT ANGIO HEAD AND NECK INDICATIONS: left upper arm weakness woke up with it TECHNIQUE: After the administration of intravenous contrast, 1 mm thick sections acquired from the aortic arch through the [place]. Post-contrast 4.5 mm thick sections then re-acquired from the foramen magnum to the vertex. 3-dimensional twtuzll-gkxfihsmn-lbkahzibcc (MIP) and/or volume rendering reformats were acquired of the central intracranial vasculature and neck separately. COMPARISON: [facility], CT, CT CERVICAL SPINE WO CON, 04/11/2021, 8:18. [facility], CT, CT HEAD/BRAIN WO CON, 04/11/2021, 8:18. FINDINGS: Image quality: Excellent. BRAIN: CSF spaces: Ventricles are normal in size and shape. Basal cisterns are patent. No extra-axial fluid collections. Brain: No midline shift. No intracranial bleeds or masses. Gauthier-white matter interface appears intact. Skull and face: Calvarium and facial bones appear intact, without suspicious lesions. Orbits appear normal. Sinuses: Sinuses and mastoids are clear. HEAD CT ANGIOGRAPHY: Anterior circulation: Intracranial internal carotid arteries are normal in size and flow. The flow within the paired anterior cerebral arteries is normal and symmetric. The flow within the middle cerebral arteries is normal and symmetric. The anterior communicating artery is seen. No aneurysms are seen. Posterior circulation: Visualized portions of the vertebral arteries demonstrate normal caliber, and join to form a normal appearing basilar artery. Flow within the posterior cerebral arteries is normal and symmetric. No aneurysms are seen. NECK CT ANGIOGRAPHY: Carotid system: The great vessels demonstrate a conventional anatomy as they arise from the aortic arch. The origins of the common carotid arteries appear patent. The common carotid arteries demonstrate normal caliber and courses. Mild calcified plaques at the carotid bifurcation regions bilaterally. The internal carotid arteries demonstrate normal calibers and courses. Posterior circulation: The origins of the vertebral arteries both appear widely patent. The more superior extracranial portions of both vertebral arteries also demonstrate normal courses and calibers. They join to form a normal appearing basilar artery. Soft tissues: Visualized neck soft tissues demonstrate no suspicious abnormalities. Bones: No suspicious bony lesions. Moderate degenerative disc disease in cervical spine. Visualized cervical spine appears normally aligned. IMPRESSION: 1. No acute intracranial abnormalities. If clinical symptoms persist or clinical suspicion for pathology is high, MRI is suggested for further evaluation. 2. No hemodynamic significant stenosis in anterior or posterior circulations. 3. No hemodynamic significant stenosis in cervical carotid arteries or vertebral arteries bilaterally. Any quantitative measurements of stenosis were performed using NASCET criteria. Dictated by: Ismael Kruse M.D. on 04/11/2021 at 9:03 Approved by: Ismael Kruse M.D. on 04/11/2021 at 9:13
--- NOTE | 2021-04-11 07:56 | DI.CT.S_ITS ---
PROCEDURE: CT CERVICAL SPINE WO CON INDICATIONS: Left upper ext weakness, woke up with it. TECHNIQUE: Noncontrast 3 mm thick sections acquired from the skull base to the T4 level. Sagittal and coronal reformats were then constructed. For radiation dose reduction, the following was used: automated exposure control, adjustment of mA and/or kV according to patient size. COMPARISON: None. FINDINGS: Image quality: Excellent. Bones: No fractures or dislocations. Visualized superior ribs are intact. There are degenerative changes of both temporomandibular joints. C6-7 demonstrates disc space narrowing, disc osteophytes, and endplate sclerosis. There is moderate left and mild right foraminal stenosis. Soft tissues: Prevertebral soft tissues are normal in thickness. No paravertebral hematomas. No apical pneumothoraces. IMPRESSION: 1. No acute traumatic abnormality of the cervical spine. 2. Degenerative disc disease at C6-7 with disc osteophytes and uncovertebral hypertrophy causing moderate left and mild right foraminal stenosis. Dictated by: Phililp Silverio M.D. on 04/11/2021 at 8:41 Approved by: Phillip Silverio M.D. on 04/11/2021 at 8:45
[2021-04-11 08:07] LABS: UR Morphine/Opiate cutoff 300 Negative (Negative); Ur Creatinine Normal (Normal); Ur Specific Gravity Normal (Normal); Urine Amphetamines Negative (Negative); Urine Barbiturates Negative (Negative); Urine Benzodiazepines Negative (Negative); Urine Cocaine Negative (Negative); Urine MDMA Negative (Negative); Urine Methadone Negative (Negative); Urine Methamphetamines Negative (Negative); Urine Oxycodone Negative (Negative); Urine Phencyclidine Negative (Negative); Urine Tetrahydrocannabinol Negative (Negative); Urine Tricyclic Antidepressant Negative (Negative); Urine pH Normal (Normal)
[2021-04-11 08:15] LABS: Bacteria Urine Moderate (10-30); Culture Indicated Urine Specimen Cultured; RBC Urine 10-30/HPF (0-5/HPF); Squamous Epithelial Cell Urine 0-1 /HPF (0-5/HPF); WBC Urine >100/HPF (0-5/HPF)
--- NOTE | 2021-04-11 10:29 | DI.MRI.S_ITS ---
PROCEDURE: MR HEAD/BRAIN WO CON INDICATIONS: left upper ext weakness TECHNIQUE: Non-contrast axial T1 spin echo, axial T2 fast spin echo, sagittal and axial FLAIR, coronal T2 fast spin echo, axial gradient echo, axial diffusion and ADC through the brain. COMPARISON: [facility], CT, CT HEAD/BRAIN WO CON, 04/11/2021, 8:18. FINDINGS: Image quality: Excellent. CSF spaces: Ventricles appear symmetric in size and shape. Basal cisterns are patent. No extra-axial fluid collections. Brain: No intracranial bleeds or mass effects. There is cerebral volume loss for age. There are very mild periventricular and deep white matter chronic small vessel ischemic changes. Brainstem appears normal. Diffusion-weighted images show no acute ischemic insults. No chronic ischemic insults. Normal intravascular flow voids are present. Skull and face: Calvarial bone marrow is normal in signal. Orbits are normal. Sinuses: Sinuses and mastoids are clear. IMPRESSION: Unremarkable brain MRI for patient age. No evidence acute stroke, hemorrhage, or mass. Dictated by: Venancio Danielle M.D. on 04/11/2021 at 12:03 Approved by: Venancio Danielle M.D. on 04/11/2021 at 12:05
--- NOTE | 2021-04-11 12:24 | PC.NURSE ---
Pt removed glucose monitor for MRI, requested a check. Glucose 202.
== END 2021-04-11 12:34 | disposition home or self-care (01) ==
PROVIDERS: Emergency Medicine; Emergency Provider Emergency Medicine; PCP Family Medicine
DX: M54.10 Radiculopathy, site unspecified (principal)
CPT/HCPCS: 36415; 70450; 70496; 70498; 70551; 72125; 80053; 80305; 81003; 81015; 85025; 87086; 93005; 93010; 99284; 99285

== ENCOUNTER → 2021-04-14 08:20 | Outpatient (CLI) | payer OTHER, SELFPAY ==
[2021-03-16 08:05] VITALS: BMI 23.8
== END ==
PROVIDERS: PCP Family Medicine; Referring Provider Specialist; Visit Provider Specialist
DX: C61 Malignant neoplasm of prostate (principal); R30.0 Dysuria; Z87.442 Personal history of urinary calculi
CPT/HCPCS: 81002; 87086

== ENCOUNTER → 2021-04-19 10:48 | Outpatient (CLI) | payer OTHER, MEDICARE, BC, SELFPAY ==
[2021-04-14 09:08] VITALS: BMI 23.8
[2021-04-19 11:48] LABS: Hemoglobin A1C% w Est Avg Glu 8.8 % (4.0-6.0)
== END ==
PROVIDERS: PCP Family Medicine; Referring Provider Physician Assistant; Visit Provider Physician Assistant
DX: E78.5 Hyperlipidemia, unspecified (principal); E10.9 Type 1 diabetes mellitus without complications
CPT/HCPCS: 36415; 83036

== ENCOUNTER → 2021-05-26 15:34 | Outpatient (CLI) | payer MEDICARE, BC, SELFPAY ==
[2021-04-14 09:08] VITALS: BMI 23.8
--- NOTE | 2021-05-26 15:40 | DI.MRI.S_ITS ---
PROCEDURE: MR CERVICAL SPINE WO CON INDICATIONS: Radicupolathy LUE TECHNIQUE: Noncontrast sagittal T1 spin echo and T2 fast spin echo, sagittal STIR, foraminal oblique sagittal T2 fast spin echo, and axial gradient echo or T2 fast spin echo through the cervical spine. COMPARISON: [facility], CT, CT CERVICAL SPINE WO CON, 04/11/2021, 8:18. FINDINGS: Image quality: Excellent. Alignment and Curvature: There is normal bony alignment. Bone Marrow: Marrow demonstrates normal overall signal. Spinal Cord: Visualized spinal cord has normal size and signal. No cerebellar tonsillar herniation. Paraspinous Soft Tissues: No paravertebral masses. Prevertebral soft tissues are normal in thickness. C2-C3: No spinal canal stenosis or neural foraminal narrowing. C3-C4: Uncovertebral joint facet hypertrophy or are eccentric towards the right and result in moderate narrowing of the right neural foramen. No significant left foraminal narrowing. C4-C5: No significant spinal canal stenosis or neural foraminal narrowing. C5-C6: No significant spinal canal stenosis or neural foraminal narrowing. C6-C7: Disc desiccation and loss of disc space height with posterior disc-osteophyte complex and Modic type 2 degenerative endplate changes as well as left greater than right uncovertebral joint and facet hypertrophy. Findings result in moderate to severe narrowing of the left neural foramen and moderate narrowing of the right neural foramen without significant spinal canal stenosis. C7-T1: Left greater than right uncovertebral joint and facet hypertrophy result in moderate to severe narrowing of the left neural foramen without signal right neural foraminal narrowing or spinal canal stenosis. IMPRESSION: 1. At C6-7, degenerative changes result in moderate to severe left and moderate right neural foraminal narrowing without spinal canal stenosis. 2. As C7-T1, degenerative changes result in moderate to severe left neural foraminal narrowing without significant right neural foraminal narrowing or spinal canal stenosis. 3. Additional degenerative changes as described in detail in the body of the report. No high-grade spinal canal stenosis. Dictated by: Jin Middleton M.D. on 05/26/2021 at 17:10 Approved by: Jin Middleton M.D. on 05/26/2021 at 17:19
== END ==
PROVIDERS: PCP Family Medicine; Referring Provider Physician Assistant; Visit Provider Physician Assistant
DX: M47.22 Other spondylosis with radiculopathy, cervical region (principal); M48.02 Spinal stenosis, cervical region
CPT/HCPCS: 72141

== ENCOUNTER → 2021-06-09 09:16 | Outpatient (CLI) | payer MEDICARE, BC, SELFPAY ==
[2021-04-14 09:08] VITALS: BMI 23.8
[2021-06-09 10:13] LABS: Hemoglobin A1C% w Est Avg Glu 8.5 % (4.0-6.0)
[2021-06-09 10:31] LABS: Alanine Aminotransferase 23 IU/L (<50); Albumin 4.4 g/dL (3.5-5.0); Albumin Globulin Ratio 1.6 (1.0-2.8); Alkaline Phosphatase 56 U/L (38-126); Aspartate Aminotransferase 23 IU/L (17-59); BUN Creatinine Ratio 41.2 (6-22); Bilirubin Total 0.7 mg/dL (0.2-1.3); Blood Urea Nitrogen 28 mg/dL (9-20); Calcium 9.8 mg/dL (8.4-10.2); Carbon Dioxide 33 mmol/L (22-32); Chloride 99 mmol/L (98-107); Cholesterol 225 mg/dL (140-199); Estimated Glomerular Filt Rate > 60.0 mL/min (>60); Globulin 2.7 g/dL (1.7-4.1); Glucose 249 mg/dL (80-110); HDL Cholesterol 95 mg/dL (40-60); HEMOLYSIS < 15 (0-50); LDL Cholesterol Calculated 93 mg/dL (<100); Potassium 4.3 mmol/L (3.4-5.1); Sodium 137 mmol/L (137-145); Total Protein 7.1 g/dL (6.3-8.2); Triglycerides 185 mg/dL (35-150)
[2021-06-09 11:01] LABS: Cortisol AM (Before 10AM) 12.5 ug/dL (4.46-22.7)
[2021-06-09 11:02] LABS: TSH w/ Reflex to FT4 1.37 uIU/mL (0.47-4.68)
[2021-06-09 11:36] LABS: Microalbumi Creatinin Ratio Ur 51.4 ug/mg CR (<30); Microalbumin Urine Random 5.4 mg/dL (0-1.6)
== END ==
PROVIDERS: PCP Family Medicine; Referring Provider Family Medicine; Visit Provider Family Medicine
DX: E11.9 Type 2 diabetes mellitus without complications (principal); E78.00 Pure hypercholesterolemia, unspecified
CPT/HCPCS: 36415; 80053; 80061; 82043; 82533; 82570; 83036; 84443

== ENCOUNTER 2021-06-11 16:11 | Emergency (ER) | payer MEDICARE, BC, SELFPAY ==
[2021-04-14 09:08] VITALS: BMI 23.8
[2021-06-11 16:21] VITALS: BP 160/92; PULSE 80; RESP 16; TEMP 36.2; O2SAT 98; BMI 24.2
--- NOTE | 2021-06-11 16:46 | PC.NURSE ---
Pt states bladder/urethra surgery end of Feb. No problem voiding until 3-4 days ago, feels he's retaining urine. Indwelling catheter placed, 14 peruvian.
--- NOTE | 2021-06-11 16:52 | ED.MALEGU ---
HPI - Male Genitourinary General Chief complaint: Urogenital-Male Stated complaint: NEEDS A CATHETER Time Seen by Provider: 06/11/21 16:15 History of Present Illness HPI Narrative: 66-year-old male nonsmoker with history of diabetes and BPH presents with a chief complaint of gradually worsening difficulty with urination over the past few days. He recently had a urologic procedure and has had increasing difficulty since. He can still start his stream but feels like he cannot empty his bladder and now he is having suprapubic pain. Denies fever or chills. He denies any chest pain or shortness of breath. He is not dizzy nor weak or lightheaded. He has had a Stringer catheter in the past and states this feels similar to prior episodes of urinary retention Related Data Home Medications Medication Instructions Recorded Confirmed coenzyme Q10 75 mg capsule (Ultra 75 mg PO DAILY 01/12/21 06/09/21 CoQ10) red yeast rice 600 mg capsule 600 mg PO DAILY 01/12/21 06/09/21 tamsulosin 0.4 mg capsule 0.4 mg PO DAILY 04/14/21 06/09/21 Previous Rx's Medication Instructions Recorded insulin lispro 100 unit/mL 7 unit (0.07 mL) SUBCUT TID #30 ml 06/09/20 subcutaneous pen (Humalog KwikPen (U-100) Insulin) insulin glargine 100 unit/mL (3 16 unit (0.16 mL) SUBCUT HS #30 ml 04/04/21 mL) subcutaneous pen (Lantus Solostar U-100 Insulin) prednisone 10 mg tablets in a dose See Rx Instructions .ROUTE 04/11/21 pack .COMPLEX #18 ea blood sugar diagnostic (Blood #50 ea 04/20/21 Glucose Test) sodium,potassium,mag sulfates 17.5 See Rx Instructions PO .COMPLEX 06/03/21 gram-3.13 gram-1.6 gram oral soln #354 ml (Suprep Bowel Prep Kit) lisinopril 5 mg tablet 5 mg PO DAILY #30 tab 06/10/21 ciprofloxacin HCl 500 mg tablet 500 mg PO BID #14 tab 06/11/21 Allergies Allergy/AdvReac Type Severity Reaction Status Date / Time No Known Drug Allergies Allergy Verified 06/09/21 08:29 Review of Systems Review of Systems Narrative: GENERAL: Denies chills, fatigue, malaise, fever, sweats. HEENT: Denies sinus pain, ear pain, sore throat, difficulty swallowing, dizziness. RESPIRATORY: Denies dyspnea, cough, wheezing, hemoptysis, sputum. CARDIOVASCULAR: Denies chest pain, palpitations, orthopnea, edema, GASTROINTESTINAL: Denies nausea, vomiting, abdominal pain, diarrhea, constipation, melena. : See HPI MUSCULOSKELETAL: denies weakness, joint pain, or bony pain SKIN: Denies rash, skin lesions, or other NEUROLOGIC: Denies weakness, headache, numbness, change in speech, confusion, seizures, incoordination. PSYCHIATRIC: No concerning psychosocial issues. 12 point review of systems is negative except for those stated above Patient History Medical History Benign prostatic hyperplasia (10/22/14) Bladder calculus BPH w urinary obs/LUTS Calculus of kidney COVID-19 (05/2020) Diabetes mellitus type 1A (~2010) History of nephrolithiasis Kidney stones Prostate cancer Radicular pain of left upper extremity Urinary retention Viral illness Surgical History H/O transurethral resection of prostate Social History marital status: household members: none Smoking Status: Never smoker alcohol intake: current substance use type: does not use Smoking Status: Never smoker alcohol intake frequency: 3 or more drinks per day Alcohol type: wine Substance Use Type: does not use Exam Narrative Exam Narrative: GEN: AOx3 and in mild distress EYES: Pupils are equal, round, and reactive to light and accommodation. Extraoccular muscles are intact bilaterally. There is no subconjunctival hemorrhage or exudate. CHEST: Lungs are clear to auscultation bilaterally and free of wheezes, rales, or rhonchi. Heart rate is regular rhythm, there are no murmurs, clicks, rubs, or gallops. There is no chest wall tenderness. ABD: Abdomen is soft and nontender. There is no guarding or rebound. Bowel sounds are normal in all 4 quadrants. There is no mass or organomegaly. EXT: Full painless ROM of all extremities with no loss of sensation or strength. SKIN: Warm, pink, and dry. No erythema or rash Initial Vital Signs Initial Vital Signs: Vital Signs Temperature 97.1 F L 06/11/21 16:21 Pulse Rate 80 06/11/21 16:21 Respiratory Rate 16 06/11/21 16:21 Blood Pressure 160/92 H 06/11/21 16:21 Pulse Oximetry 98 06/11/21 16:21 Course Orders Ordered: Discontinued Medications Levofloxacin (Levofloxacin 250 Mg Tablet) 500 mg PO NOW ONE Stop: 06/11/21 17:09 Last Admin: 06/11/21 17:25 Dose: 500 mg Documented by: ABHIJIT Vital Signs Vital signs: Vital Signs - 8 hr 06/11/21 16:21 06/11/21 17:29 Temperature 97.1 F L Pulse Rate 80 77 Respiratory Rate 16 17 Blood Pressure 160/92 H 149/75 H Pulse Oximetry 98 97 MDM - Male Genitourinary Lab Data Labs: Lab Results 06/11/21 Range/Units 16:45 Urine Color Yellow Urine Appearance Clear Urine pH 5.5 (4.5-8.0) Ur Specific [place] 1.010 (1.000-1.035) Urine Protein Negative (Negative) Urine Glucose (UA) Negative (Negative) g/dL Urine Ketones Trace H (NEGATIVE) Urine Occult Blood 1+ H (Negative) Urine Nitrate Negative (Negative) Urine Bilirubin Negative (NEGATIVE) Urine Urobilinogen 0.2 (0.2) E.U./dL Ur Leukocyte Esterase 1+ H (NEGATIVE) Urine RBC 1-5/hpf D (0-5/HPF) Urine WBC 5-10/hpf H (0-5/HPF) Ur Squamous Epith Cells 0-1 /hpf (0-5/HPF) Urine Bacteria None seen (None) Ur Culture Indicated? Specimen cultured Urine Dip Bedside Urine Glucose Negative Bedside Urine Bilirubin - Negative Bedside Urine Ketone +/- 5 Urine Specific [place] 1.020 Bedside Urine Occult Blood +/- Bedside Urine pH 6.0 Bedside Urine Protein - Negative Bedside Urine Urobilinogen 0.2 Bedside Urine Nitrite - Negative Bedside Urine Leukocytes + 70 Esterase MDM Narrative Medical decision making narrative: patient presents with difficulty urinating over the evening. He has recent urologic procedure. Stringer catheter placed patient has complete resolution of symptoms. Urine does suggest possible infection, given recent instrumentation patient will be treated for infection. Return precautions discussed and questions answered to his apparent satisfaction Discharge Plan Departure Patient Disposition: Home Clinical Impression: Acute urinary retention, Acute UTI Activity Restrictions/Additional Instructions: *You have been diagnosed with [acute urinary retention and urinary infection *What to do: *Please continue to take your regular medications as directed. [ x] New medication prescriptions sent to your pharmacy: [facility] [ ] New medication written as a paper prescription [ ] No new medications given *Please follow up with your primary urologist in 2-3 days, call for an appointment. Let them know you were seen in the Emergency Department and that we ask that you be seen in follow up. We will electronically transmit a record of today's note if your PCP is in our system *If you do not have a primary care provider please contact the [facility] Resource line at [phone]. They will ask some questions about your medical history and help get you set up with a doctor in the community. *Return to Emergency Department if you should have any new, worsening or concerning symptoms, such as [fever greater than 101 F, shaking chills, worsening pain, persistent vomiting or other bothersome symptoms] Prescriptions: New ciprofloxacin HCl 500 mg tablet 500 mg PO BID Qty: 14 0RF No Action insulin lispro [Humalog KwikPen Insulin] 100 unit/mL insulin pen 7 unit SUBCUT TID Qty: 30 3RF Rx Instructions: Use three times daily before meals. Lantus Solostar U-100 Insulin 100 unit/mL (3 mL) insulin pen 16 unit SUBCUT HS Qty: 30 4RF (DME) Blood Glucose Test Strip See Rx Instructions .Route Qty: 50 3RF Rx Instructions: check blood sugar three times daily Suprep Bowel Prep Kit 17.5-3.13-1.6 gram recon soln See Rx Instructions PO .COMPLEX Qty: 354 0RF Rx Instructions: Take as instructed by physician lisinopril 5 mg tablet 5 mg PO DAILY Qty: 30 4RF prednisone 10 mg tablets,dose pack See Rx Instructions .ROUTE .COMPLEX Qty: 18 0RF Rx Instructions: Take 3 tablets by mouth daily x3 then 2 tablets by mouth x3 days, then 1 tablet by mouth x3 days Ultra CoQ10 75 mg capsule 75 mg PO DAILY 0RF red yeast rice 600 mg capsule 600 mg PO DAILY 0RF Rx Instructions: give with meal/snack tamsulosin 0.4 mg capsule 0.4 mg PO DAILY 0RF Referrals: Ralph Haas MD [Primary Care Provider] -
[2021-06-11] MEDS: levoFLOXacin 250 MG TABLET 500 MG PO (17:25)
[2021-06-11 17:29] VITALS: BP 149/75; PULSE 77; RESP 17; O2SAT 97
--- NOTE | 2021-06-11 17:30 | PC.NURSE ---
leg bag placed to arevalo catheter. pt demonstrated understanding of arevalo care and maintence and change between leg bag and overnight drain bag
[2021-06-11 17:31] LABS: Appearance Urine UA CLEAR; Bilirubin Urine UA NEGATIVE (NEGATIVE); Color Urine UA YELLOW; Glucose Urine UA NEGATIVE (Negative); Ketones Urine UA TRACE (NEGATIVE); Leukocyte Esterase Urine UA 1+ (NEGATIVE); Nitrite Urine UA NEGATIVE (Negative); Occult Blood Urine UA 1+ (Negative); Protein Urine UA NEGATIVE (Negative); Urobilinogen Urine UA 0.2 E.U./dL (0.2); pH Urine UA 5.5 (4.5-8.0)
[2021-06-11 17:40] LABS: Bacteria Urine None Seen; Culture Indicated Urine Specimen Cultured; RBC Urine 1-5/HPF (0-5/HPF); Squamous Epithelial Cell Urine 0-1 /HPF (0-5/HPF); WBC Urine 5-10/HPF (0-5/HPF)
== END 2021-06-11 17:31 | disposition home or self-care (01) ==
PROVIDERS: Emergency Provider Emergency Medicine; PCP Family Medicine
DX: N39.0 Urinary tract infection, site not specified (principal); R33.9 Retention of urine, unspecified
CPT/HCPCS: 51702; 81001; 81003; 87086; 99283; 99284

== ENCOUNTER 2021-06-17 17:19 | Emergency (ER) | payer MEDICARE, BC, SELFPAY ==
[2021-04-14 09:08] VITALS: BMI 23.8
[2021-06-17 17:46] VITALS: PULSE 70; RESP 18; TEMP 36.6; O2SAT 99; BMI 24.2
--- NOTE | 2021-06-17 18:05 | ED_ITS ---
HPI - Male Genitourinary <Sondra Mc, [facility] - Last Filed: 06/17/21 21:54> General Chief complaint: Urogenital-Male Stated complaint: UNABLE TO PEE NEEDS CATH Time Seen by Provider: 06/17/21 17:55 Source: patient Mode of arrival: Ambulatory History of Present Illness HPI Narrative: 66-year-old male presents to the emergency department 1 day following having his Stringer catheter removed by the urologist. Patient states that he has BPH with urinary obstruction, a TURP procedure, and recently had his Stringer catheter removed yesterday. Patient was seen in the emergency department on 06/11/2021 for urinary retention and a Stringer catheter was placed. He had this removed at his urologist's appointment yesterday, states he was able to void last night. Today he was unable to void, he states he has bladder pressure,, denies any fever, denies any rectal pain, denies any testicular pain, denies any penile drainage. Patient denies any abdominal pain. Patient states he was taking Flomax but stopped taking it 06/09/2021. He is not currently on any antibiotics. He has a history of diabetes. Related Data Home Medications Medication Instructions Recorded Confirmed coenzyme Q10 75 mg capsule (Ultra 75 mg PO DAILY 01/12/21 06/09/21 CoQ10) red yeast rice 600 mg capsule 600 mg PO DAILY 01/12/21 06/09/21 tamsulosin 0.4 mg capsule 0.4 mg PO DAILY 04/14/21 06/09/21 Previous Rx's Medication Instructions Recorded insulin lispro 100 unit/mL 7 unit (0.07 mL) SUBCUT TID #30 ml 06/09/20 subcutaneous pen (Humalog KwikPen (U-100) Insulin) insulin glargine 100 unit/mL (3 16 unit (0.16 mL) SUBCUT HS #30 ml 04/04/21 mL) subcutaneous pen (Lantus Solostar U-100 Insulin) prednisone 10 mg tablets in a dose See Rx Instructions .ROUTE 04/11/21 pack .COMPLEX #18 ea blood sugar diagnostic (Blood #50 ea 04/20/21 Glucose Test) sodium,potassium,mag sulfates 17.5 See Rx Instructions PO .COMPLEX 06/03/21 gram-3.13 gram-1.6 gram oral soln #354 ml (Suprep Bowel Prep Kit) ciprofloxacin HCl 500 mg tablet 500 mg PO BID #14 tab 06/11/21 lisinopril 5 mg tablet 5 mg PO DAILY #90 tab 06/13/21 Allergies Allergy/AdvReac Type Severity Reaction Status Date / Time No Known Drug Allergies Allergy Verified 06/09/21 08:29 Review of Systems <ZARINA Escoto - Last Filed: 06/17/21 21:54> Review of Systems Narrative: General: denies fever, chills, malaise, sweats, fatigue Head/Neck: denies headache, neck pain, dizziness Eyes: denies visual changes, eye pain Cardio: denies chest pain, palpitations, edema Respiratory: denies dyspnea, cough, orthopnea GI: denies abdominal pain, nausea, vomiting, or diarrhea : endorses urinary retention, denies dysuria, frequency or incontinence MSK: denies joint pain, muscle weakness Skin: denies rash, itching, skin lesions or other Neuro: denies numbness, tingling Patient History <ZARINA Escoto - Last Filed: 06/17/21 21:54> Medical History Benign prostatic hyperplasia (10/22/14) Bladder calculus BPH w urinary obs/LUTS Calculus of kidney COVID-19 (05/2020) Diabetes mellitus type 1A (~2010) History of nephrolithiasis Kidney stones Prostate cancer Radicular pain of left upper extremity Urinary retention Viral illness Surgical History H/O transurethral resection of prostate Social History marital status: household members: none Smoking Status: Never smoker alcohol intake: current substance use type: does not use Smoking Status: Never smoker alcohol intake frequency: 3 or more drinks per day Alcohol type: wine Substance Use Type: does not use Exam <ZARINA Escoto - Last Filed: 06/17/21 21:54> Narrative Exam Narrative: Independently reviewed vitals signs and nursing notes. General: cooperative, comfortable, in no acute distress, well developed and well groomed Head: atraumatic, symmetrical facial expressions Neck: supple, atraumatic Eyes: pupils equal round and reactive, EOMI, conjunctiva normal Cardiovascular: regular rate and rhythm, no peripheral edema, warm extremities Respiratory: normal effort, able to speak in complete sentences, no audible wheezing, stridor, or rales. No retractions or tachypnea. GI: abdomen soft, nontender to palpation, nondistended, no masses, no exquisite tenderness with exam, without guarding or rebound. bladder scan at approximately 350 mL of urine in his bladder, patient was unable to void, he was catheterized, with a 14 [place] Stringer catheter, the 16 [place] catheter did not fit, glide a was used for insertion, patient tolerated well. There was no bleeding, no open wound, no penile drainage. MSK: moves all extremities, ambulatory w/steady gait, neurovascularly intact, no weakness Skin: brisk capillary refill, no rash, no erythema Neuro: normal speech and cognition, A&O x3, normal tone Psych: mental status is grossly normal, congruent mood, normal affect, pleasant and cooperative Initial Vital Signs Initial Vital Signs: Vital Signs Temperature 98 F 06/17/21 17:46 Pulse Rate 70 06/17/21 17:46 Respiratory Rate 18 06/17/21 17:46 Pulse Oximetry 99 06/17/21 17:46 Course <ZARINA Escoto - Last Filed: 06/17/21 21:54> Orders Ordered: Discontinued Medications Lidocaine HCl (Lidocaine 2% (Glydo) 6 Ml Gel) 6 ml TOP NOW ONE Stop: 06/17/21 17:57 Last Admin: 06/17/21 18:15 Dose: 6 ml Documented by: ABHIJIT Lidocaine HCl (Lidocaine 2% (Glydo) 6 Ml Gel) 6 ml TOP NOW ONE Stop: 06/17/21 18:12 Last Admin: 06/17/21 18:15 Dose: 6 ml Documented by: ABHIJIT Vital Signs Vital signs: Vital Signs - 8 hr 06/17/21 17:46 Temperature 98 F Pulse Rate 70 Respiratory Rate 18 Pulse Oximetry 99 MDM - Male Genitourinary <ZARINA Escoto - Last Filed: 06/17/21 21:54> [facility] Narrative Medical decision making narrative: This is a 66-year-old male who was recently catheterized for urinary tension the emergency department on 06/11/2021, he returns to the emergency department today after having his Stringer catheter removed by Urology and complaining of bladder pressure and inability to void. Patient has a history of BPH, he is also a type 1 diabetic, is not currently on Flomax but states he has it and is able to start taking it again. She was catheterized with a 14 [place] Stringer, given a leg bag and a overnight bag, 16 [place] did not fit his urethra, a 14 [place] fit without difficulty, clear yellow urine drained. Urine culture from 06/11/2021 had no growth, patient reports that he has 2 more doses of his ciprofloxacin although he denies any symptoms of UTI this time. I did not extend his antibiotic as he is asymptomatic from that standpoint however I encouraged him to start taking his Flomax daily until he follows up with urology. Patient is appropriate and amenable to discharge home. Vital signs are stable on repeat examination is unremarkable. Patient has been informed of results. Patient has been given strict return to ER precautions for any new or worsening symptoms. Patient understands to follow up closely with outpatient providers as instructed. Patient understands plan and agrees to discharge home. All questions and concerns answered at this time. Discharge Plan Departure Patient Disposition: Home Clinical Impression: Acute urinary retention Instructions: DI for Urinary Retention in Men Activity Restrictions/Additional Instructions: *You have been diagnosed with acute urinary retention related to your Stringer catheter being removed yesterday. Please continue taking your tamsulosin until you follow-up with urology. Please follow-up with urology as soon as possible. They may want you to have a Stringer catheter for couple of days while your so on this medication and then attempt removal and see how that goes. Please continue to stay hydrated, you are on a strong antibiotic for 7 days, this should be adequate. Your urinary culture did not grow any bacteria so that is reassuring. I hope you feel better soon, thank you for coming to the emergency department, please return for any complications or if you notice that there is no more drainage. Have attached to urologist below because I am not sure which 1 is yours, please follow-up with whoever you seen most recently. *What to do: *Please continue to take your regular medications as directed. [ ] New medication prescriptions sent to your pharmacy: [ ] [ ] New medication written as a paper prescription [ x] No new medications given *Please follow up with your primary care provider in 2-3 days, call for an appointment. Let them know you were seen in the Emergency Department and that we asked that you be seen for follow-up. We will electronically transmit a record of today's note if your PCP is in our system *If you do not have a primary care provider please contact [phone] to establish care with one of the [facility] primary care providers. *Return to Emergency Department if you should have any new, worsening or concerning symptoms, such as [fever greater than 101F, chills, worsening pain, persistent vomiting or other bothersome symptoms] Prescriptions: No Action insulin lispro [Humalog KwikPen Insulin] 100 unit/mL insulin pen 7 unit SUBCUT TID Qty: 30 3RF Rx Instructions: Use three times daily before meals. Lantus Solostar U-100 Insulin 100 unit/mL (3 mL) insulin pen 16 unit SUBCUT HS Qty: 30 4RF (DME) Blood Glucose Test Strip See Rx Instructions .Route Qty: 50 3RF Rx Instructions: check blood sugar three times daily Suprep Bowel Prep Kit 17.5-3.13-1.6 gram recon soln See Rx Instructions PO .COMPLEX Qty: 354 0RF Rx Instructions: Take as instructed by physician lisinopril 5 mg tablet 5 mg PO DAILY Qty: 90 3RF prednisone 10 mg tablets,dose pack See Rx Instructions .ROUTE .COMPLEX Qty: 18 0RF Rx Instructions: Take 3 tablets by mouth daily x3 then 2 tablets by mouth x3 days, then 1 tablet by mouth x3 days ciprofloxacin HCl 500 mg tablet 500 mg PO BID Qty: 14 0RF Ultra CoQ10 75 mg capsule 75 mg PO DAILY 0RF red yeast rice 600 mg capsule 600 mg PO DAILY 0RF Rx Instructions: give with meal/snack tamsulosin 0.4 mg capsule 0.4 mg PO DAILY 0RF Referrals: Angelika Raygoza MD [Non-Staff] - Ralph Haas MD [Primary Care Provider] - Ronnie Fisher MD [Physician] -
[2021-06-17] MEDS: LIDOCAINE 2% (GLYDO) 6 ML GEL TOP ×2 (18:15)
--- NOTE | 2021-06-17 18:16 | PC.NURSE ---
pt had cath on sunday removed yesterday. unable to place 16 fr. placed a 14 fr 10cc balloon arevalo with leg bag attached and larger drain bag for home.
== END 2021-06-17 18:21 | disposition home or self-care (01) ==
PROVIDERS: Emergency Provider Nurse Practitioner Critical Care Medicine; PCP Family Medicine
DX: R33.9 Retention of urine, unspecified (principal)
CPT/HCPCS: 51702; 51798; 99283

== ENCOUNTER 2021-06-21 20:49 | Emergency (ER) | payer MEDICARE, BC, SELFPAY ==
[2021-04-14 09:08] VITALS: BMI 23.8
[2021-06-21 20:53] VITALS: BP 140/70; PULSE 70; RESP 18; TEMP 36.6; O2SAT 97
--- NOTE | 2021-06-21 22:40 | ED_ITS ---
HPI - Recheck/Abnormal Lab/Rx General Chief Complaint: Recheck/Abnormal Lab/Rx Stated Complaint: states needs a catheter put in Time Seen by Provider: 06/21/21 22:36 Source: patient Mode of arrival: Ambulatory History of Present Illness HPI narrative: 66-year-old gentleman with type 1 diabetes, hypertension and recent BPH with TUR. Post surgery he had a Stringer catheter that was successfully removed with successful voiding for a number of weeks and then worsening problems. Had a catheter replaced due to inability to void on 06/16. He some a the urology group up in [place] earlier today and the catheter was removed. Over the course of the evening he has been unable to void in comes in for catheter replacement. They were going to try self caths at home however he was unable to pass the catheter. He has no other specific complaints or concerns at this time Related Data Home Medications Medication Instructions Recorded Confirmed coenzyme Q10 75 mg capsule (Ultra 75 mg PO DAILY 01/12/21 06/09/21 CoQ10) red yeast rice 600 mg capsule 600 mg PO DAILY 01/12/21 06/09/21 tamsulosin 0.4 mg capsule 0.4 mg PO DAILY 04/14/21 06/09/21 Previous Rx's Medication Instructions Recorded insulin lispro 100 unit/mL 7 unit (0.07 mL) SUBCUT TID #30 ml 06/09/20 subcutaneous pen (Humalog KwikPen (U-100) Insulin) insulin glargine 100 unit/mL (3 16 unit (0.16 mL) SUBCUT HS #30 ml 04/04/21 mL) subcutaneous pen (Lantus Solostar U-100 Insulin) prednisone 10 mg tablets in a dose See Rx Instructions .ROUTE 04/11/21 pack .COMPLEX #18 ea blood sugar diagnostic (Blood #50 ea 04/20/21 Glucose Test) sodium,potassium,mag sulfates 17.5 See Rx Instructions PO .COMPLEX 06/03/21 gram-3.13 gram-1.6 gram oral soln #354 ml (Suprep Bowel Prep Kit) ciprofloxacin HCl 500 mg tablet 500 mg PO BID #14 tab 06/11/21 lisinopril 5 mg tablet 5 mg PO DAILY #90 tab 06/13/21 Allergies Allergy/AdvReac Type Severity Reaction Status Date / Time No Known Drug Allergies Allergy Verified 06/09/21 08:29 Review of Systems Review of Systems Narrative: Remainder of complete review of systems is otherwise unremarkable except for that included in the HPI. Patient History Medical History Benign prostatic hyperplasia (10/22/14) Bladder calculus BPH w urinary obs/LUTS Calculus of kidney COVID-19 (05/2020) Diabetes mellitus type 1A (~2010) History of nephrolithiasis Kidney stones Prostate cancer Radicular pain of left upper extremity Urinary retention Viral illness Surgical History H/O transurethral resection of prostate Social History marital status: household members: none Smoking Status: Never smoker alcohol intake: current substance use type: does not use Smoking Status: Never smoker alcohol intake frequency: 0-2 drinks per day Alcohol type: wine Substance Use Type: does not use Exam Initial Vital Signs Initial Vital Signs: Vital Signs Temperature 97.8 F 06/21/21 20:53 Pulse Rate 70 06/21/21 20:53 Respiratory Rate 18 06/21/21 20:53 Blood Pressure 140/70 06/21/21 20:53 Pulse Oximetry 97 06/21/21 20:53 General: Alert appropriate in no acute distress Respiratory: Able to speak in full sentences, no obvious respiratory distress Skin: No obvious rashes, warm and dry Neurologic: Grossly intact no obvious asymmetries or abnormalities Psych: appropriate insight and affect, cooperative Course Vital Signs Vital signs: Vital Signs - 8 hr 06/21/21 20:53 Temperature 97.8 F Pulse Rate 70 Respiratory Rate 18 Blood Pressure 140/70 Pulse Oximetry 97 MDM - Recheck/Abnormal Lab/Rx MDM Narrative Medical decision making narrative: 66-year-old gentleman with recurrent episodes of urinary retention. He was u nable to self cath today a 14 [place]ander coude catheter was finally successfully placed this evening. He will follow-up with urologist tomorrow and see if cutting catheters are available for self cathing. No signs of infection or other complications at this time he is safe for home discharge Discharge Plan Departure Patient Disposition: Home Clinical Impression: Acute urinary retention Instructions: DI for Urinary Retention in Men Activity Restrictions/Additional Instructions: Thank you for coming in this evening We were able to place a 14 [place] Ze[place] coude catheter Please call the urology office and see if coude catheters are available for self cathing. Also, let them know that you are continuing to have difficulties with voiding. I wish you the best Prescriptions: No Action insulin lispro [Humalog KwikPen Insulin] 100 unit/mL insulin pen 7 unit SUBCUT TID Qty: 30 3RF Rx Instructions: Use three times daily before meals. Lantus Solostar U-100 Insulin 100 unit/mL (3 mL) insulin pen 16 unit SUBCUT HS Qty: 30 4RF (DME) Blood Glucose Test Strip See Rx Instructions .Route Qty: 50 3RF Rx Instructions: check blood sugar three times daily Suprep Bowel Prep Kit 17.5-3.13-1.6 gram recon soln See Rx Instructions PO .COMPLEX Qty: 354 0RF Rx Instructions: Take as instructed by physician lisinopril 5 mg tablet 5 mg PO DAILY Qty: 90 3RF prednisone 10 mg tablets,dose pack See Rx Instructions .ROUTE .COMPLEX Qty: 18 0RF Rx Instructions: Take 3 tablets by mouth daily x3 then 2 tablets by mouth x3 days, then 1 tablet by mouth x3 days ciprofloxacin HCl 500 mg tablet 500 mg PO BID Qty: 14 0RF Ultra CoQ10 75 mg capsule 75 mg PO DAILY 0RF red yeast rice 600 mg capsule 600 mg PO DAILY 0RF Rx Instructions: give with meal/snack tamsulosin 0.4 mg capsule 0.4 mg PO DAILY 0RF Referrals: Ralph Haas MD [Primary Care Provider] -
== END 2021-06-21 22:48 | disposition home or self-care (01) ==
PROVIDERS: Emergency Provider Emergency Medicine; PCP Family Medicine
DX: R33.9 Retention of urine, unspecified (principal); Z46.6 Encounter for fitting and adjustment of urinary device
CPT/HCPCS: 51702; 99281; 99283

== ENCOUNTER → 2021-10-05 07:25 | Outpatient (CLI) | payer MEDICARE, OTHER, SELFPAY ==
[2021-04-14 09:08] VITALS: BMI 23.8
[2021-10-05 08:11] LABS: BUN Creatinine Ratio 28.8 (6-22); Blood Urea Nitrogen 19 mg/dL (9-20); Calcium 9.2 mg/dL (8.4-10.2); Carbon Dioxide 29 mmol/L (22-32); Chloride 99 mmol/L (98-107); Estimated Glomerular Filt Rate > 60 mL/min (>60); Glucose 158 mg/dL (80-110); HEMOLYSIS < 15 (0-50); Potassium 4.3 mmol/L (3.4-5.1); Sodium 135 mmol/L (137-145)
[2021-10-06 04:17] LABS: Hemoglobin A1C% w Est Avg Glu 7.9 % (4.0-6.0)
== END ==
PROVIDERS: PCP Family Medicine; Referring Provider Family Medicine; Visit Provider Family Medicine
DX: E10.65 Type 1 diabetes mellitus with hyperglycemia (principal); E78.5 Hyperlipidemia, unspecified
CPT/HCPCS: 36415; 80048; 83036

== ENCOUNTER → 2022-01-11 07:15 | Outpatient (CLI) | payer MEDICARE, OTHER, SELFPAY ==
[2021-04-14 09:08] VITALS: BMI 23.8
[2022-01-11 08:10] LABS: Hemoglobin A1C% w Est Avg Glu 7.3 % (4.0-6.0)
[2022-01-11 08:31] LABS: Blood Urea Nitrogen 18 mg/dL (9-20); Calcium 9.4 mg/dL (8.4-10.2); Carbon Dioxide 31 mmol/L (22-32); Chloride 98 mmol/L (98-107); Estimated Glomerular Filt Rate > 60 mL/min (>60); Glucose 200 mg/dL (80-110); HEMOLYSIS < 15 (0-50); Potassium 4.8 mmol/L (3.4-5.1); Sodium 136 mmol/L (137-145)
[2022-01-11 15:20] LABS: Microalbumi Creatinin Ratio Ur 53.7 ug/mg CR (<30)
== END ==
PROVIDERS: PCP Family Medicine; Referring Provider Family Medicine; Visit Provider Family Medicine
DX: E10.9 Type 1 diabetes mellitus without complications (principal)
CPT/HCPCS: 36415; 80048; 82043; 82570; 83036

== ENCOUNTER → 2022-03-09 17:10 | Outpatient (CLI) | payer MEDICARE, OTHER, SELFPAY ==
[2021-04-14 09:08] VITALS: BMI 23.8
== END ==
PROVIDERS: PCP Family Medicine; Visit Provider Family Medicine
DX: R82.90 Unspecified abnormal findings in urine (principal)
CPT/HCPCS: 87086

== ENCOUNTER → 2022-05-01 09:06 | Outpatient (CLI) | payer MEDICARE, OTHER, SELFPAY ==
[2021-04-14 09:08] VITALS: BMI 23.8
[2022-05-01 13:37] LABS: Appearance Urine UA SL CLOUDY; Bilirubin Urine UA NEGATIVE (NEGATIVE); Color Urine UA YELLOW; Glucose Urine UA NEGATIVE (Negative); Ketones Urine UA 1+ (NEGATIVE); Leukocyte Esterase Urine UA 2+ (NEGATIVE); Nitrite Urine UA NEGATIVE (Negative); Occult Blood Urine UA NEGATIVE (Negative); Protein Urine UA NEGATIVE (Negative); Specific Gravity Urine UA 1.015 (1.000-1.035); Urobilinogen Urine UA 0.2 E.U./dL (0.2)
[2022-05-01 13:50] LABS: Bacteria Urine None Seen; Culture Indicated Urine Specimen Cultured; RBC Urine 0-1/HPF (0-5/HPF); Squamous Epithelial Cell Urine 0-1 /HPF (0-5/HPF); WBC Urine 30-100/HPF (0-5/HPF)
== END ==
PROVIDERS: PCP Family Medicine; Visit Provider Physician Assistant
DX: R30.0 Dysuria (principal)
CPT/HCPCS: 81001; 87086

== ENCOUNTER 2022-05-19 08:44 | Day surgery (SDC) | payer MEDICARE, OTHER, SELFPAY ==
[2021-04-14 09:08] VITALS: BMI 23.8
--- NOTE | 2022-05-19 | PATH_ITS ---
[facility] Accession Number: [id number] No. of containers..02 Tissue . 01 Material submitted: . PART A: colon - TRANSVERSE COLON POLYP PART B: colon - SIGMOID COLON POLYP . 01 Diagnosis: A. Transverse Colon, Polyp, Biopsy: Tubular adenoma. . B. Sigmoid Colon, Polyp, Biopsy: Benign lymphoid aggregate. MRV 05/24/2022 1514 Local . 01 Electronically signed: . Sondra Seaman MD, Pathologist NPI- [id number] . 01 Gross description: . Part A: TRANSVERSE COLON POLYP: Received in formalin is 1 fragment(s) of echeverria, soft tissue measuring 0.3 x 0.2 x 0.1 cm submitted entirely in 1 cassette(s) Part B: SIGMOID COLON POLYP: Received in formalin is 1 fragment(s) of echeverria, soft tissue measuring 0.2 x 0.2 x 0.1 cm submitted entirely in 1 cassette(s) /CPE 05/23/2022 0517 Local . 01 Pathologist provided ICD-10: D12.3 . 01 CPT . 443215, [id number] Specimen Comment: A courtesy copy of this report has been sent to [facility] Pathology Performed at: 01 [facility] [address] [place] [address] [address], [place], [place] [id number] MD Cale Martin MD Phone: [phone]
[2022-05-19] MEDS: LACTATED RINGERS 1,000 ML 120 ML IV (09:04)
[2022-05-19 09:05] VITALS: BP 151/82; PULSE 76; RESP 16; TEMP 36.2; O2SAT 96; BMI 23.5
--- NOTE | 2022-05-19 09:58 | P.HP_ITS ---
History of Present Illness History of Present Illness Chief complaint: [facility] Narrative: Mr. Wiggins presents today for a screening colonoscopy. He has had a colonoscopy before was probably about 10 years ago he thinks it was done at [facility]. As far as he recalls he there were no polyps. He has no family history of colon cancer. He has not had abdominal surgery besides a TURP. He has no concerning symptoms. Patient History Medical History Benign prostatic hyperplasia (10/22/14) Bladder calculus BPH w urinary obs/LUTS Calculus of kidney COVID-19 (05/2020) Diabetes mellitus type 1A (~2010) History of nephrolithiasis Kidney stones Prostate cancer Radicular pain of left upper extremity Urinary retention Viral illness Surgical History H/O transurethral resection of prostate Family & Social History Social History: household members none Tobacco & Substance use: Smoking Status Never smoker alcohol intake current alcohol intake frequency 0-2 drinks per day Substance Use Type does not use Meds Home Medications and Allergies Home Medications Medication Instructions Recorded Confirmed Type red yeast rice 600 mg capsule 600 mg PO DAILY 01/12/21 05/01/22 History insulin glargine 100 unit/mL (3 16 unit (0.16 mL) SUBCUT HS #30 mL 07/04/21 05/01/22 Rx mL) subcutaneous pen (Lantus Solostar U-100 Insulin) insulin lispro 100 unit/mL 7 unit (0.07 mL) SUBCUT TID #30 mL 07/04/21 05/01/22 Rx subcutaneous pen (Humalog KwikPen (U-100) Insulin) lisinopril 5 mg tablet 5 mg PO DAILY #90 tabs 10/06/21 05/01/22 Rx Dexcom CGM Product Design Specialist #1 ea 10/21/21 05/01/22 Rx Dexcom CGM sensor #1 ea 10/21/21 05/01/22 Rx Dexcom CGM transmitter #1 ea 10/21/21 05/01/22 Rx blood sugar diagnostic (Blood #150 ea 03/09/22 05/01/22 Rx Glucose Test strips) sodium,potassium,mag sulfates 17.5 See Rx Instructions PO .COMPLEX 04/17/22 05/01/22 Rx gram-3.13 gram-1.6 gram oral soln #354 mL (Suprep Bowel Prep Kit) doxycycline monohydrate 100 mg 100 mg PO BID #20 caps 05/01/22 05/01/22 Rx capsule Allergies Allergy/AdvReac Type Severity Reaction Status Date / Time No Known Drug Allergies Allergy Verified 05/01/22 08:52 Exam Vital Signs (past 8 hours): - 05/19/22 09:05 Temperature 97.2 F L Pulse Rate 76 Respiratory Rate 16 Blood Pressure 151/82 H Pulse Oximetry 96 Oxygen Delivery Method Room Air Oxygen Delivery Method Room Air Const General: cooperative, healthy appearing and comfortable HENMT Head: normal to inspection Resp Effort & Inspection: normal respiratory effort and able to speak in complete sentences Cardio Pulses: radial pulses present GI Palpation: soft and No tender Assessment & Plan Assessment & Plan narrative: I discussed the risks benefits and alternatives of a screening colonoscopy. He understands these including but not limited to perforation and incomplete exam. He would like to proceed Time Spent With Patient Critical Care time: I spent a total of [] minutes of critical care time on this patient's care today; this time is exclusive of procedural time.
--- NOTE | 2022-05-19 10:59 | PM.OP.COLON ---
Operative Date/Time/Diagnoses Date of procedure: 05/19/22 Pre-op diagnosis: Screening for colon cancer Post-op diagnosis: same Procedure & Clinicians Study performed: Colonoscopy and biopsy Same procedure as scheduled: Yes Indications: Colon cancer screening Surgeon: Kimberlee Perkins Procedure Notes Procedure in detail: Patient was taken to the endoscopy suite and placed in a left lateral decubitus position. A time-out was performed. Conscious sedation was induced with the help of ASSET RECOVERY SPECIALIST. Digital rectal exam was performed there were no masses or strictures. The colonoscope was introduced into the anal canal and advanced through the colon to the cecum. A photograph of the appendiceal orifice was obtained. There was some mild scope injury of no clinical significance seen on that photograph, that was sustained upon entry into the cecum. The withdrawal time in total was 25 minutes. There were 2 small polyps seen 1 in the transverse colon and 1 in the sigmoid. These were each biopsied and removed in total with the Jumbo forceps and sent for pathology. Additionally there were scattered diverticula throughout the sigmoid colon. The scope was retroflexed and a photograph of hemorrhoidal piles which were within normal limits was taken. Patient tolerated the procedure well and went in good condition to the postoperative care unit. Follow-up recommendations will be based on the pathology but may be between 7-10 years.
[2022-05-19 11:00] VITALS: BP 105/62; PULSE 70; RESP 16; TEMP 36.1; O2SAT 98
[2022-05-19 11:04] VITALS: BP 110/67; PULSE 69; RESP 14; O2SAT 98
[2022-05-19 11:08] VITALS: BP 128/83; PULSE 70; RESP 18; TEMP 36.1; O2SAT 98
== END 2022-05-19 11:20 | disposition home or self-care (01) ==
PROVIDERS: PCP Family Medicine; Referring Provider Surgery; Visit Provider Surgery
PROC: 0DJD8ZZ Inspection of Lower Intestinal Tract, Via Natural or Artificial Opening Endoscopic (ICD-10-PCS; CPT 45378; principal; 2022-05-19 10:00)
DX: Z12.11 Encounter for screening for malignant neoplasm of colon (principal); K57.30 Diverticulosis of large intestine without perforation or abscess without bleeding; K64.4 Residual hemorrhoidal skin tags; D12.3 Benign neoplasm of transverse colon
CPT/HCPCS: 45380; 36415; J2704

== ENCOUNTER → 2022-05-22 07:37 | Outpatient (CLI) | payer MEDICARE, OTHER, SELFPAY ==
[2021-04-14 09:08] VITALS: BMI 23.8
[2022-05-22 08:01] LABS: Appearance Urine UA CLEAR; Bilirubin Urine UA NEGATIVE (NEGATIVE); Color Urine UA YELLOW; Glucose Urine UA NEGATIVE (Negative); Ketones Urine UA 1+ (NEGATIVE); Leukocyte Esterase Urine UA 1+ (NEGATIVE); Nitrite Urine UA NEGATIVE (Negative); Occult Blood Urine UA NEGATIVE (Negative); Protein Urine UA NEGATIVE (Negative); Specific Gravity Urine UA 1.025 (1.000-1.035); Urobilinogen Urine UA 0.2 E.U./dL (0.2)
[2022-05-22 08:21] LABS: Bacteria Urine Few (2-10); RBC Urine 1-5/HPF (0-5/HPF); Squamous Epithelial Cell Urine 1-5 /HPF (0-5/HPF); WBC Urine 30-100/HPF (0-5/HPF)
[2022-05-22 08:22] LABS: Culture Indicated Urine Specimen Cultured
== END ==
PROVIDERS: PCP Family Medicine; Referring Provider Family Medicine; Visit Provider Family Medicine
DX: R30.0 Dysuria (principal)
CPT/HCPCS: 81003; 81015; 87077; 87086; 87147; 87186

== ENCOUNTER → 2022-08-16 06:47 | Outpatient (CLI) | payer MEDICARE, OTHER, SELFPAY ==
[2021-04-14 09:08] VITALS: BMI 23.8
[2022-08-16 08:34] LABS: Prostate Specific Antigen 1.51 ng/mL (0.10-4.00)
== END ==
PROVIDERS: PCP Family Medicine; Referring Provider Urology; Visit Provider Urology
DX: C61 Malignant neoplasm of prostate (principal)
CPT/HCPCS: 36415; 84153

== ENCOUNTER → 2022-09-05 07:36 | Outpatient (CLI) | payer MEDICARE, OTHER, SELFPAY ==
[2021-04-14 09:08] VITALS: BMI 23.8
[2022-09-05 08:30] LABS: Add Manual Diff / Slide Review NO; Basophils Absolute Auto 0 /uL (0-100); Basophils Percent Auto 0.8 % (0-2); Eosinophils Absolute Auto 400 /uL (0-450); Eosinophils Percent Auto 6.9 % (2-4); Hematocrit 39.2 % (41-53); Hemoglobin 13.6 g/dL (13.5-17.5); Lymphocytes Absolute Auto 1700 /uL (1100-4500); Lymphocytes Percent Auto 31.2 % (25-40); Mean Corpuscular HGB Conc 34.6 % (30-36); Mean Corpuscular Hemoglobin 33.7 PG (26-34); Mean Corpuscular Volume 97.3 fL (80-100); Monocytes Absolute Auto 400 /uL (0-900); Monocytes Percent Auto 6.7 % (3-14); Neutrophils Absolute Auto 3000 /uL (1500-7000); Neutrophils Percent Auto 54.4 % (50-75); Platelet Count 288 X10^3/uL (150-400); Red Blood Cell Count 4.03 X10^6/uL (4.5-5.9); Red Cell Distribution Width 13.5 % (11.6-14.8); White Blood Cell Count 5.5 X10^3/uL (4.5-11.0)
[2022-09-05 09:00] LABS: Alanine Aminotransferase 23 IU/L (<50); Albumin 4.2 g/dL (3.5-5.0); Albumin Globulin Ratio 1.8 (1.0-2.8); Alkaline Phosphatase 53 U/L (38-126); Aspartate Aminotransferase 23 IU/L (17-59); BUN Creatinine Ratio 36.7 (6-22); Bilirubin Total 0.7 mg/dL (0.2-1.3); Blood Urea Nitrogen 22 mg/dL (9-20); Calcium 9.5 mg/dL (8.4-10.2); Carbon Dioxide 31 mmol/L (22-32); Chloride 97 mmol/L (98-107); Cholesterol 224 mg/dL (140-199); Estimated Glomerular Filt Rate > 60 mL/min (>60); Globulin 2.4 g/dL (1.7-4.1); Glucose 224 mg/dL (80-110); HDL Cholesterol 97 mg/dL (40-60); HEMOLYSIS < 15 (0-50); LDL Cholesterol Calculated 109 mg/dL (<100); Potassium 5.1 mmol/L (3.4-5.1); Sodium 133 mmol/L (137-145); Total Protein 6.6 g/dL (6.3-8.2); Triglycerides 91 mg/dL (35-150)
[2022-09-05 09:29] LABS: Prostate Specific Antigen Scrn 1.57 ng/mL (0.1-4.0)
[2022-09-05 10:48] LABS: Creatinine Urine Random 62.8 mg/dL
[2022-09-05 10:53] LABS: Microalbumi Creatinin Ratio Ur 90.7 ug/mg CR (<30); Microalbumin Urine Random 5.7 mg/dL (0-1.6)
[2022-09-06 03:15] LABS: x Labcorp Estim. Avg Glu (eAG) 192 mg/dL (.); x Labcorp Hemoglobin A1c 8.3 % (4.8-5.6)
== END ==
PROVIDERS: PCP Family Medicine; Referring Provider Family Medicine; Visit Provider Family Medicine
DX: Z12.5 Encounter for screening for malignant neoplasm of prostate; E11.9 Type 2 diabetes mellitus without complications; C61 Malignant neoplasm of prostate; I48.0 Paroxysmal atrial fibrillation
CPT/HCPCS: 36415; 80053; 80061; 82043; 82570; 83036; 85025; G0103

== ENCOUNTER → 2023-02-08 07:31 | Outpatient (CLI) | payer MEDICARE, OTHER, SELFPAY ==
[2021-04-14 09:08] VITALS: BMI 23.8
[2023-02-08 08:33] LABS: Add Manual Diff / Slide Review NO; Basophils Absolute Auto 0 /uL (0-100); Basophils Percent Auto 0.9 % (0-2); Eosinophils Absolute Auto 300 /uL (0-450); Eosinophils Percent Auto 5.5 % (2-4); Hematocrit 39.9 % (41-53); Hemoglobin 13.8 g/dL (13.5-17.5); Lymphocytes Absolute Auto 1700 /uL (1100-4500); Lymphocytes Percent Auto 34.7 % (25-40); Mean Corpuscular HGB Conc 34.7 % (30-36); Mean Corpuscular Hemoglobin 34.3 PG (26-34); Mean Corpuscular Volume 98.8 fL (80-100); Monocytes Absolute Auto 400 /uL (0-900); Monocytes Percent Auto 7.3 % (3-14); Neutrophils Absolute Auto 2500 /uL (1500-7000); Neutrophils Percent Auto 51.6 % (50-75); Platelet Count 292 X10^3/uL (150-400); Red Blood Cell Count 4.04 X10^6/uL (4.5-5.9); Red Cell Distribution Width 13.6 % (11.6-14.8); White Blood Cell Count 4.9 X10^3/uL (4.5-11.0)
[2023-02-08 09:09] LABS: Alanine Aminotransferase 28 IU/L (<50); Albumin 4.3 g/dL (3.5-5.0); Albumin Globulin Ratio 1.4 (1.0-2.8); Alkaline Phosphatase 43 U/L (38-126); Aspartate Aminotransferase 27 IU/L (17-59); BUN Creatinine Ratio 32.8 (6-22); Bilirubin Total 0.7 mg/dL (0.2-1.3); Blood Urea Nitrogen 19 mg/dL (9-20); Calcium 9.5 mg/dL (8.4-10.2); Carbon Dioxide 29 mmol/L (22-32); Chloride 100 mmol/L (98-107); Cholesterol 229 mg/dL (140-199); Estimated Glomerular Filt Rate > 60 mL/min (>60); Glucose 169 mg/dL (80-110); HDL Cholesterol 77 mg/dL (40-60); HEMOLYSIS < 15 (0-50); LDL Cholesterol Calculated 137 mg/dL (<100); Potassium 4.4 mmol/L (3.4-5.1); Sodium 136 mmol/L (137-145); Total Protein 7.3 g/dL (6.3-8.2); Triglycerides 75 mg/dL (35-150)
[2023-02-08 09:12] LABS: Creatinine Urine Random 73.5 mg/dL
[2023-02-08 09:13] LABS: Microalbumi Creatinin Ratio Ur 127.8 ug/mg CR (<30); Microalbumin Urine Random 9.4 mg/dL (0-1.6)
[2023-02-08 09:41] LABS: TSH w/ Reflex to FT4 1.86 uIU/mL (0.47-4.68)
== END ==
PROVIDERS: PCP Family Medicine; Referring Provider Physician Assistant; Visit Provider Physician Assistant
DX: C61 Malignant neoplasm of prostate (principal); E10.9 Type 1 diabetes mellitus without complications; I48.0 Paroxysmal atrial fibrillation
CPT/HCPCS: 36415; 80053; 80061; 82043; 82570; 84443; 85025

== ENCOUNTER → 2023-03-02 07:30 | Outpatient (CLI) | payer MEDICARE, OTHER, SELFPAY ==
[2021-04-14 09:08] VITALS: BMI 23.8
[2023-03-02 09:13] LABS: Prostate Specific Antigen 1.75 ng/mL (0.10-4.00)
== END ==
PROVIDERS: PCP Family Medicine; Referring Provider Physician Assistant; Visit Provider Physician Assistant
DX: C61 Malignant neoplasm of prostate (principal); E10.9 Type 1 diabetes mellitus without complications
CPT/HCPCS: 36415; 83036; 84153

== ENCOUNTER → 2023-09-13 07:18 | Outpatient (CLI) | payer MEDICARE, OTHER, SELFPAY ==
[2021-04-14 09:08] VITALS: BMI 23.8
[2023-09-13 08:34] LABS: Add Manual Diff / Slide Review NO; Basophils Absolute Auto 0 /uL (0-100); Basophils Percent Auto 0.5 % (0-2); Eosinophils Absolute Auto 300 /uL (0-450); Eosinophils Percent Auto 4.6 % (2-4); Hematocrit 39.6 % (41-53); Hemoglobin 13.4 g/dL (13.5-17.5); Lymphocytes Absolute Auto 1700 /uL (1100-4500); Lymphocytes Percent Auto 22.9 % (25-40); Mean Corpuscular HGB Conc 33.9 % (30-36); Mean Corpuscular Hemoglobin 33.4 PG (26-34); Mean Corpuscular Volume 98.6 fL (80-100); Monocytes Absolute Auto 500 /uL (0-900); Monocytes Percent Auto 6.4 % (3-14); Neutrophils Absolute Auto 4800 /uL (1500-7000); Neutrophils Percent Auto 65.6 % (50-75); Platelet Count 274 X10^3/uL (150-400); Red Blood Cell Count 4.02 X10^6/uL (4.5-5.9); Red Cell Distribution Width 13.6 % (11.6-14.8); White Blood Cell Count 7.3 X10^3/uL (4.5-11.0)
[2023-09-13 08:37] LABS: Alanine Aminotransferase 22 IU/L (<50); Albumin 4.2 g/dL (3.5-5.0); Albumin Globulin Ratio 1.7 (1.0-2.8); Alkaline Phosphatase 54 U/L (38-126); Aspartate Aminotransferase 23 IU/L (17-59); BUN Creatinine Ratio 37.9 (6-22); Bilirubin Total 0.8 mg/dL (0.2-1.3); Blood Urea Nitrogen 25 mg/dL (9-20); Calcium 9.4 mg/dL (8.4-10.2); Carbon Dioxide 26 mmol/L (22-32); Chloride 103 mmol/L (98-107); Cholesterol 218 mg/dL (140-199); Estimated Glomerular Filt Rate > 60 mL/min (>60); Globulin 2.5 g/dL (1.7-4.1); Glucose 242 mg/dL (80-110); HDL Cholesterol 83 mg/dL (40-60); HEMOLYSIS < 15 (0-50); Hemoglobin A1C% w Est Avg Glu 8.1 % (4.0-6.0); LDL Cholesterol Calculated 120 mg/dL (<100); Potassium 4.6 mmol/L (3.4-5.1); Sodium 134 mmol/L (137-145); Total Protein 6.7 g/dL (6.3-8.2); Triglycerides 77 mg/dL (35-150)
[2023-09-13 09:05] LABS: Creatinine Urine Random 80.66 mg/dL
[2023-09-13 09:11] LABS: Microalbumin Urine Random 12.3 mg/dL (0-1.6)
== END ==
LOC: LAB 07:19
PROVIDERS: PCP Family Medicine; Referring Provider Family Medicine; Visit Provider Family Medicine
DX: E10.9 Type 1 diabetes mellitus without complications (principal); E78.00 Pure hypercholesterolemia, unspecified; I48.0 Paroxysmal atrial fibrillation; E78.5 Hyperlipidemia, unspecified
CPT/HCPCS: 36415; 80053; 80061; 82043; 82570; 83036; 85025

== ENCOUNTER → 2024-03-11 07:06 | Outpatient (CLI) | payer MEDICARE, OTHER, SELFPAY ==
[2021-04-14 09:08] VITALS: BMI 23.8
[2024-03-11 08:25] LABS: Hemoglobin A1C% w Est Avg Glu 7.2 % (4.0-6.0)
[2024-03-11 08:31] LABS: BUN Creatinine Ratio 30.8 (6-22); Blood Urea Nitrogen 20 mg/dL (9-20); Calcium 9.2 mg/dL (8.4-10.2); Carbon Dioxide 28 mmol/L (22-32); Chloride 104 mmol/L (98-107); Cholesterol 226 mg/dL (140-199); Estimated Glomerular Filt Rate > 60 mL/min (>60); Glucose 131 mg/dL (80-110); HDL Cholesterol 88 mg/dL (40-60); HEMOLYSIS < 15 (0-50); LDL Cholesterol Calculated 122 mg/dL (<100); Potassium 3.7 mmol/L (3.4-5.1); Sodium 137 mmol/L (137-145); Triglycerides 79 mg/dL (35-150)
== END ==
PROVIDERS: PCP Family Medicine; Referring Provider Family Medicine; Visit Provider Family Medicine
DX: E11.9 Type 2 diabetes mellitus without complications (principal)
CPT/HCPCS: 36415; 80048; 80061; 83036

== ENCOUNTER → 2024-05-06 07:24 | Outpatient (CLI) | payer MEDICARE, OTHER, SELFPAY ==
[2021-04-14 09:08] VITALS: BMI 23.8
[2024-05-06 09:48] LABS: Prostate Specific Antigen 1.64 ng/mL (0.10-4.00)
== END ==
PROVIDERS: PCP Family Medicine; Referring Provider Nurse Practitioner; Visit Provider Nurse Practitioner
DX: C61 Malignant neoplasm of prostate (principal)
CPT/HCPCS: 36415; 84153

== ENCOUNTER → 2024-08-22 08:13 | Outpatient (CLI) | payer MEDICARE, OTHER, SELFPAY ==
[2021-04-14 09:08] VITALS: BMI 23.8
[2024-08-22 09:26] LABS: Add Manual Diff / Slide Review NO; Basophils Absolute Auto 100 /uL (0-100); Basophils Percent Auto 0.9 % (0-2); Eosinophils Absolute Auto 600 /uL (0-450); Eosinophils Percent Auto 10.1 % (2-4); Hematocrit 40.7 % (41-53); Hemoglobin 14.1 g/dL (13.5-17.5); Lymphocytes Absolute Auto 1800 /uL (1100-4500); Lymphocytes Percent Auto 29.3 % (25-40); Mean Corpuscular HGB Conc 34.6 % (30-36); Mean Corpuscular Volume 98.3 fL (80-100); Monocytes Absolute Auto 400 /uL (0-900); Monocytes Percent Auto 7.2 % (3-14); Neutrophils Absolute Auto 3200 /uL (1500-7000); Neutrophils Percent Auto 52.5 % (50-75); Platelet Count 273 X10^3/uL (150-400); Red Blood Cell Count 4.14 X10^6/uL (4.5-5.9); Red Cell Distribution Width 13.5 % (11.6-14.8); White Blood Cell Count 6.1 X10^3/uL (4.5-11.0)
[2024-08-22 09:45] LABS: Alanine Aminotransferase 45 IU/L (<50); Albumin 4.6 g/dL (3.5-5.0); Albumin Globulin Ratio 1.8 (1.0-2.8); Alkaline Phosphatase 48 U/L (38-126); Aspartate Aminotransferase 49 IU/L (17-59); Bilirubin Total 0.8 mg/dL (0.2-1.3); Bilirubin Unconjugated 0.5 mg/dL (0.0-1.1); Blood Urea Nitrogen 18 mg/dL (9-20); Calcium 9.6 mg/dL (8.4-10.2); Carbon Dioxide 26 mmol/L (22-32); Chloride 102 mmol/L (98-107); Cholesterol 236 mg/dL (140-199); Estimated Glomerular Filt Rate > 60 mL/min (>60); Globulin 2.5 g/dL (1.7-4.1); Glucose 199 mg/dL (70-99); HDL Cholesterol 94 mg/dL (40-60); HEMOLYSIS < 15 (0-50); LDL Cholesterol Calculated 131 mg/dL (<100); Potassium 4.5 mmol/L (3.4-5.1); Sodium 137 mmol/L (137-145); Total Protein 7.1 g/dL (6.3-8.2); Triglycerides 53 mg/dL (35-150)
[2024-08-22 10:16] LABS: Prostate Specific Antigen Scrn 1.83 ng/mL (0.1-4.0); TSH w/ Reflex to FT4 2.18 uIU/mL (0.47-4.68)
== END ==
PROVIDERS: PCP Family Medicine; Referring Provider Family Medicine; Visit Provider Family Medicine
DX: C61 Malignant neoplasm of prostate (principal); E10.9 Type 1 diabetes mellitus without complications; Z12.5 Encounter for screening for malignant neoplasm of prostate; I48.0 Paroxysmal atrial fibrillation; E78.00 Pure hypercholesterolemia, unspecified
CPT/HCPCS: 36415; 80053; 80061; 80076; 82043; 82570; 83036; 84443; 85025; G0103

== ENCOUNTER → 2025-01-22 07:52 | Outpatient (CLI) | payer MEDICARE, OTHER, SELFPAY ==
[2021-04-14 09:08] VITALS: BMI 23.8
--- NOTE | 2025-01-22 07:53 | DI.ECHO.S_ITS ---
[facility] : : [address] : [address] : : [id number] : : Phone: [phone] Echocardiogram Report + + :Name: DUSTIN MAJANO Study Date: 01/22/2025 Height: 66 in : :[facility] ReadingLocation: Weight: 155 lb : : Gender: Male BSA: 1.8 m2 : :: 1955 Age: 69 yrs BP: 163/85 mmHg: :Reason For Study: HYPERTENSION : :Ordering Physician: TG, : :RALPH Performed By: Ralph Bain : :Referring: RALPH MAS : + + Interpretation Summary The left ventricle is normal in size. The ejection fraction is estimated to be 55-60%. There has been no significant change in LVEF since the previous exam. The right ventricle is normal in size and function. There is mild to moderate mitral regurgitation. Compared to the prior echo study, there has been an increase in the severity of mitral regurgitation. There is mild to moderate aortic regurgitation. Compared to the prior echo study, there has been an increase in the severity of aortic regurgitation. There is mild tricuspid regurgitation. Compared to the prior echo exam, there has been no change in TR severity. The right ventricular systolic pressure is estimated to be at least 35 mmHg based on an estimated right atrial pressure of 3 mm Hg. Procedure: A two-dimensional transthoracic echocardiogram with color flow and Doppler was performed. The study quality was technically good. Comparison is made with the echocardiogram of 04/26/2020. The patient was in normal sinus rhythm during the exam. Left Ventricle: The left ventricle is normal in size. There is normal left ventricular wall thickness. There is no ventricular septal defect visualized. There is no thrombus. A false chord is noted (normal variant). The ejection fraction is estimated to be 55-60%. There has been no significant change since the previous exam. There are no focal wall motion abnormalities. Diastolic parameters suggest a relaxation abnormality of the left ventricle, consistent with probable normal filling pressures. Right Ventricle: The right ventricle is normal in size and function. Atria: The left atrial size is normal. There has been no significant change since the previous study. The right atrium is mildly dilated. There is no Doppler evidence for an interatrial shunt. Mitral Valve: The mitral valve leaflets are mildly calcified. There is mild to moderate mitral regurgitation. Compared to the prior echo study, there has been an increase in the severity of mitral regurgitation. Aortic Valve: The aortic valve is trileaflet. The aortic valve opens well. There is discrete nodular thickening of the right coronary cusp. The aortic valve is mildly calcified. There is mild to moderate aortic regurgitation. Compared to the prior echo study, there has been an increase in the severity of aortic regurgitation. Tricuspid Valve: The tricuspid valve leaflets are thin and pliable. There is mild tricuspid regurgitation. The right ventricular systolic pressure is estimated to be at least 35 mmHg based on an estimated right atrial pressure of 3 mm Hg. Compared to the prior echo exam, there has been no change in TR severity. Pulmonic Valve: The pulmonic valve leaflets are thin and pliable; valve motion is normal. There is trace pulmonic regurgitation. Great Vessels: The aortic root is normal size. The dimensions of the ascending aorta are normal. The pulmonary artery is normal size. The IVC is of normal diameter and collapses greater than 50% with a sniff. This suggests a low right atrial pressure of 3 mm Hg. Pericardium/ Pleura There is no pericardial effusion. There is no pleural effusion. MMode/2D Measurements & Calculations LVIDd: 5.2 cm LVOT diam: 2.2 cm LVIDs: 3.3 cm Ao root diam: 3.6 cm FS: 35.7 % asc Aorta Diam: 3.6 cm EPSS: 0.81 cm IVSd: 0.75 cm LVPWd: 0.74 cm LV hernandez. diameter/BSA (cm/m^2): 2.9 LV sys. diameter/BSA (cm/m^2): 1.8 LA A2 area: 19.5 cm2 RA long axis: 5.2 cm LA A4 area: 15.8 cm2 RA area: 19.9 cm2 LA length (vol): 5.2 cm RA vol: 65.0 ml LA vol: 50.1 ml RA : 36.2 ml/m2 LA vol index: 27.9 ml/m2 IVC diam: 1.3 cm RVD1 (basal): 3.7 cm RVD2 (mid): 2.7 cm TAPSE: 3.0 cm Doppler Measurements & Calculations Ao V2 max: 130.7 cm/sec LVOT Max Bertin: 113.8 cm/sec Ao V2 mean: 93.2 cm/sec LV V1 max P.2 mmHg Ao max P.8 mmHg LV V1 VTI: 22.0 cm Ao mean P.8 mmHg MAXINE(I,D): 3.0 cm2 Ao V2 VTI: 28.0 cm MAXINE(V,D): 3.4 cm2 sev ratio: 0.78 MAXINE indexed to BSA (cm^2/m^2): 1.7 AI P1/2t: 517.4 msec AI dec slope: 258.8 cm/sec2 MV E max bertin: 60.5 cm/sec TR max bertin: 281.6 cm/sec MV A max bertin: 85.2 cm/sec TR max P.7 mmHg MV E/A: 0.71 PA V2 max: 93.8 cm/sec Med Peak E' Bertin: 11.2 cm/sec PA V2 mean: 64.1 cm/sec E/E' med: 5.4 PA mean P.8 mmHg Lat Peak E' Beritn: 8.9 cm/sec PA pr(Accel): 37.9 mmHg E/E' lat: 6.8 E/e' average: 6.1 MV dec time: 0.26 sec SV(LVOT): 85.4 ml Reading Physician:02:53 PM
--- NOTE | 2025-01-22 14:46 | DI.NM.S_ITS ---
DATE OF SERVICE: 01/22/2025 EXERCISE TREADMILL STRESS TEST PROCEDURE: Exercise treadmill stress test without imaging. ORDERING PROVIDER: Ralph Haas MD. INDICATIONS: The patient is a 69-year-old male with refractory hypertension and tachycardia. FINDINGS: 1. The patient was able to exercise for 12 minutes 9 seconds on a standard Phani protocol suggesting excellent exercise capacity with an LAZARO of -59%, achieving 12.8 METS. 2. He had a probable normal heart rate response to exercise with a resting heart rate of 74 bpm increasing to a probable maximum of 154 bpm (101% of his predicted maximum) but challenging to assess because of significant motion artifact. He had a hypertensive blood pressure response with a resting blood pressure of 150/88 increasing to a maximum of 240/100. 3. He had significant exertional dyspnea at peak exercise but no chest discomfort or other anginal symptoms. 4. His resting ECG shows sinus rhythm with normal ST segments. The stress tracings are compromised by significant motion artifact that limits the interpretation but there are probable occasional PVCs in early exercise but no significant ST-segment shifts. Near peak exercise, he had occasional wide QRS beats and at peak exercise, he had persistent wide QRS complexes but at a similar rate as his previous sinus rhythm, suggesting possible aberrant conduction although with some irregularity and no obvious P waves, yet limited by motion artifact. Rapid atrial fibrillation cannot be excluded but he promptly reverts back to a normal QRS complex immediately in recovery with probable P waves seen, followed by a normal decline in heart rate without any further arrhythmia and only subtle ST depression that is nonspecific given his hypertension. IMPRESSION: 1. Probable normal stress test for ischemia although with reduced sensitivity and specificity because of significant motion artifact. 2. Excellent exercise capacity without angina but limiting dyspnea. 3. Normal heart rate response but a significant hypertensive blood pressure response to exercise. 4. Intermittent wide QRS beats at near peak exercise with brief sustained wide complex tachycardia, most likely sinus tachycardia with aberrancy, although P-waves are not well seen and brief nonsustained ventricular tachycardia or atrial fibrillation with aberrancy cannot be entirely excluded but resolves promptly in recovery without any further arrhythmias. Dennis Shaw - RS/fn/MARKETING CONTENT COORDINATOR doc#: [id number]/job#: [id number] dd: 01/22/2025 13:01:00 dt: 01/22/2025 14:37:00 DICTATING MD/COPIES TO: Giorgi Garay MD; Ralph Haas MD COPIES MNE: [id number];
== END ==
LOC: ECHO 07:53
PROVIDERS: PCP Family Medicine; Referring Provider Family Medicine; Visit Provider Family Medicine
DX: I08.3 Combined rheumatic disorders of mitral, aortic and tricuspid valves (principal); I48.0 Paroxysmal atrial fibrillation; I10 Essential (primary) hypertension; E78.2 Mixed hyperlipidemia
CPT/HCPCS: 93017; 93242; 93306

== ENCOUNTER → 2025-01-22 09:59 | Outpatient (CLI) | payer MEDICARE, OTHER, SELFPAY ==
[2021-04-14 09:08] VITALS: BMI 23.8
== END ==
LOC: CAR 10:01
PROVIDERS: PCP Family Medicine; Referring Provider Family Medicine; Visit Provider Family Medicine
DX: I10 Essential (primary) hypertension (principal)
CPT/HCPCS: 93242